=== PATIENT | female | born 1955 | race Caucasian/White ===

== ENCOUNTER 2018-03-17 14:46 | Inpatient (IN) | payer BC ==
[2018-03-17] MEDS ORDERED: Sodium Chloride 0.9% 1,000 ML IV STA (15:19)
--- NOTE | 2018-03-17 15:49 | ED PDOC ---
Arrival/HPI - General Chief Complaint: GI Problem Time Seen by Provider: 03/17/18 15:19 Historian: Patient - History of Present Illness Narrative History of Present Illness (Text): 03/17/18 15:44 62yr old female presents today sent in by PMD for upper and lower gi bleeding. pt states yesterday she vomited twice and the second time she vomited a large amount of blood. pt states that shortly after that she had 6 episodes of bright red blood per rectum. pt states she also noted dark stools today. pt denies cp or sob. pt denies nausea today. pt denies any fever/chills. pt denies any abdominal pain at present time. no dizziness. c/o slight generalized weakness but attributes it to not eating today. Past Medical History - Provider Review Nursing Documentation Reviewed: Yes - Travel History Have you recently traveled outside [place] w/in the past 3 mons?: No - Tetanus Immunization Tetanus Immunization: Unknown - Cardiac Hx Cardiac Disorders: Yes Hx Hypertension: Yes - Pulmonary Hx Respiratory Disorders: No - Neurological Hx Neurological Disorder: No - HEENT Hx HEENT Disorder: No - Renal Hx Renal Disorder: No - Endocrine/Metabolic Hx Endocrine Disorders: Yes Hx Diabetes Mellitus Type 2: Yes - Hematological/Oncological Hx Blood Disorders: No - Integumentary Hx Dermatological Disorder: No - Musculoskeletal/Rheumatological Hx Musculoskeletal Disorders: Yes Hx Fractures: Yes - Gastrointestinal Hx Gastrointestinal Disorders: Yes Other/Comment: GI BLEEDING - Genitourinary/Gynecological Hx Genitourinary Disorders: No - Psychiatric Hx Psychophysiologic Disorder: No Hx Substance Use: No - Surgical History Hx Orthopedic Surgery: Yes Family/Social History - Physician Review Nursing Documentation Reviewed: Yes Family/Social History: Unknown Family HX Smoking Status: Never Smoked Hx Alcohol Use: No Hx Substance Use: No Allergies/Home Meds Allergies/Adverse Reactions: Allergies No Known Allergies Allergy (Verified 03/17/18 15:05) Home Medications: Home Meds Medication Instructions Recorded Confirmed Aspirin [Aspirin Chewable] 81 mg PO DAILY 03/17/18 03/17/18 Lisinopril [Zestril] 40 mg PO DAILY 03/17/18 03/17/18 Metoprolol Succinate XL [Toprol XL] 100 mg PO DAILY 03/17/18 03/17/18 SITagliptin [Januvia] 100 mg PO DAILY 03/17/18 03/17/18 Review of Systems - Review of Systems Constitutional: Fatigue. absent: Fevers Respiratory: absent: SOB, Cough Cardiovascular: absent: Chest Pain Gastrointestinal: Vomiting. absent: Abdominal Pain, Constipation, Diarrhea, Nausea Genitourinary Female: absent: Dysuria, Frequency, Hematuria Musculoskeletal: absent: Arthralgias, Back Pain, Neck Pain Skin: absent: Rash, Pruritis Neurological: absent: Headache, Dizziness Psychiatric: absent: Anxiety, Depression, Suicidal Ideation Physical Exam Vital Signs Reviewed: Yes Vital Signs Temp Pulse Resp BP Pulse Ox 03/17/18 18:09 82 18 120/61 100 03/17/18 17:40 83 18 116/55 L 100 03/17/18 17:20 79 18 116/51 L 100 03/17/18 17:19 80 18 116/51 L 100 03/17/18 15:39 82 18 144/64 100 03/17/18 15:06 98.1 F 79 16 122/59 L 99 Temperature: Afebrile Blood Pressure: Normal Pulse: Regular Respiratory Rate: Normal Appearance: Positive for: Well-Appearing, Non-Toxic, Comfortable Pain Distress: None Mental Status: Positive for: Alert and Oriented X 3 - Systems Exam Head: Present: Atraumatic Mouth: Present: Moist Mucous Membranes Neck: Present: Normal Range of Motion Respiratory/Chest: Present: Clear to Auscultation, Good Air Exchange. No: Respiratory Distress, Accessory Muscle Use Cardiovascular: Present: Regular Rate and Rhythm, Normal S1, S2. No: Murmurs Abdomen: No: Tenderness, Distention, Peritoneal Signs, Rebound, Guarding Rectal: Present: Gross Blood, Melena, Normal Rectal Tone. No: Rectal Tenderness Back: Present: Normal Inspection. No: CVA Tenderness, Midline Tenderness, Paraspinal Tenderness Upper Extremity: Present: Normal ROM Lower Extremity: Present: Normal ROM Neurological: Present: GCS=15, Speech Normal Skin: Present: Warm, Dry, Normal Color. No: Rashes Psychiatric: Present: Alert, Oriented x 3 Medical Decision Making ED Course and Treatment: 03/17/18 15:55 62yr old female with liver cirrhosis with active GI bleeding. case discussed with dr. Lboo immediately in depth; advised protonix bolus and drip and oxtreotide bolus and drip. cbc: hcg; 10.8 Platelets; 118 CMP; Glucose; 223 BUN; 37 pt: 14 INR: 1.22 cxr: wnl ekg; normal sinus rhythm at 76 bpm normal axis no ST elevations QTC 492 03/17/18 17:[address] Fields 03/17/18 17:[address] Ridley; accepts admission. dr. ridley is requesting to type and cross for 4 units to hold. consent for blood transfusion obtained. all aspects of this case were discussed the attending of record. impression; active GI bleed admit ICU - Lab Interpretations Lab Results: 03/17/18 15:45 03/17/18 15:45 Lab Results 03/17/18 17:08: Blood Type Confirm AB POSITIVE 03/17/18 15:45: Lactate Dehydrogenase 551, Total Creatine Kinase 112, Troponin I < 0.01 03/17/18 15:45: PT 14.0 H, INR 1.22, APTT 35.1 03/17/18 15:45: WBC 10.3, RBC 3.20 L, Hgb 10.8 L, Hct 30.5 L, MCV 95.3, MCH 33.8 , MCHC 35.4, RDW 13.9, Plt Count 118 L, MPV 10.5, Gran % 64.3, Lymph % (Auto) 28.1, [place] % (Auto) 6.2 H, Eos % (Auto) 1.2 L, Baso % (Auto) 0.2, Gran # 6.60 H , Lymph # (Auto) 2.9, [place] # (Auto) 0.6, Eos # (Auto) 0.1, Baso # (Auto) 0.02 03/17/18 15:45: Blood Type AB POSITIVE, Antibody Screen Negative, BBK History Checked No verified bt 03/17/18 15:45: Sodium 144, Potassium 4.2, Chloride 109 H, Carbon Dioxide 23, Anion Gap 17, BUN 37 H, Creatinine 0.6 L, Est GFR ( Amer) > 60, Est GFR ( Non-Af Amer) > 60, Random Glucose 223 H, Calcium 9.5, Total Bilirubin 2.4 H, AST 65 H, ALT 43, Alkaline Phosphatase 96, Total Protein 7.4, Albumin 3.7, Globulin 3.7, Albumin/Globulin Ratio 1.0 L - RAD Interpretation Radiology Orders: 03/17/18 15:35 CHEST PORTABLE [RAD] Stat - Medication Orders Current Medication Orders: Pantoprazole Sodium (Protonix 40mg Ivpb) 40 mg in 100 mls @ 20 mls/hr IVPB .Q5H NEIL Last Admin: 03/17/18 16:31 Dose: 20 mls/hr eMAR Start Stop Document 03/17/18 16:31 HI (Rec: 03/17/18 16:32 [email or web address] Intravenous Solution Start Date 03/17/18 Start Time 16:32 Octreotide Acetate 1,250 mcg/ (Sodium Chloride) 252.5 mls @ 5.05 mls/hr IV .Q24H NEIL; 25 MCG/HR PRN Reason: Protocol Last Admin: 03/17/18 17:51 Dose: 25 mcg/hr, 5.05 mls/hr eMAR Start Stop Document 03/17/18 17:51 HI (Rec: 03/17/18 17:52 [facility] Intravenous Solution Start Date 03/17/18 Start Time 17:51 Titration Intervention Document 03/17/18 17:51 HI (Rec: 03/17/18 17:52 [email or web address] Titration Intake Waste Amount 0 Container Volume 252.5 Titration Dosing Titration Dose 25 IV Rate 5.05 Intake/Decrease Started Discontinued Medications Sodium Chloride (Sodium Chloride 0.9%) 1,000 mls @ 999 mls/hr IV .Q1H1M STA Stop: 03/17/18 16:19 Last Admin: 03/17/18 15:45 Dose: 999 mls/hr eMAR Start Stop Document 03/17/18 15:45 HI (Rec: 03/17/18 15:57 [email or web address]) Intravenous Solution Start Date 03/17/18 Start Time 15:52 Octreotide Acetate (Sandostatin) 50 mcg IVP STAT STA Stop: 03/17/18 15:57 Last Admin: 03/17/18 16:31 Dose: 50 mcg IVP Administration Document 03/17/18 16:31 HI (Rec: 03/17/18 16:31 [email or web address] Charges for Administration # of IVP Administrations 1 Pantoprazole Sodium (Protonix Inj) 40 mg IVP STAT STA Stop: 03/17/18 15:35 Last Admin: 03/17/18 15:57 Dose: 40 mg IVP Administration Document 03/17/18 15:57 HI (Rec: 03/17/18 15:57 [email or web address] Charges for Administration # of IVP Administrations 1 Disposition/Present on Arrival - Present on Arrival Any Indicators Present on Arrival: Yes History of DVT/PE: No History of Uncontrolled Diabetes: Yes Urinary Catheter: No History of Decub. Ulcer: No History Surgical Site Infection Following: None - Disposition Have Diagnosis and Disposition been Completed?: Yes Diagnosis: Acute GI bleeding Disposition: HOSPITALIZED Disposition Time: 17:34 Patient Plan: Admission, ICU Patient Problems: Current Active Problems Problem Status Onset Acute GI bleeding Acute Condition: CRITICAL
--- NOTE | 2018-03-17 16:01 | RAD ---
Date of service: 03/17/2018 HISTORY: rectal bleeding/vomiting blood COMPARISON: No prior. FINDINGS: LUNGS: The lungs are well inflated and clear. PLEURA: No significant pleural effusion identified, no pneumothorax apparent. CARDIOVASCULAR: Normal. OSSEOUS STRUCTURES: No significant abnormalities. VISUALIZED UPPER ABDOMEN: Normal. OTHER FINDINGS: None. IMPRESSION: No active pulmonary disease.
[2018-03-17 16:08] LABS: BASO # 0.02 K/mm3 (0.0-2.0); BASO % 0.2 % (0.0-3.0); EOS # 0.1 (0.0-0.7); EOS % 1.2 % (1.5-5.0); GRAN # 6.6 (1.4-6.5); GRAN % 64.3 % (50.0-68.0); HEMOGLOBIN 10.8 g/dL (12.0-16.0); LYMPH # 2.9 (1.2-3.4); LYMPH % 28.1 % (22.0-35.0); MEAN CELL VOLUME 95.3 fl (80.0-105.0); MEAN CORPUSCULAR HEMOGLOBIN 33.8 pg (25.0-35.0); MEAN CORPUSCULAR HGB CONC 35.4 g/dl (31.0-37.0); MEAN PLATELET VOLUME 10.5 fl (7.0-11.0); MONO # 0.6 (0.1-0.6); MONO % 6.2 % (1.0-6.0); RBC 3.2 10^6/uL (3.5-6.1); RED CELL DISTRIBUTION WIDTH 13.9 % (11.5-14.5); WHITE BLOOD COUNT 10.3 10^3/ul (4.5-11.0)
[2018-03-17 16:21] LABS: ALBUMIN 3.7 g/dL (3.0-4.8); ALT/SGPT 43 U/L (7-56); AST/SGOT 65 U/L (14-36); BLOOD UREA NITROGEN 37 mg/dL (7-21); CALCIUM 9.5 mg/dL (8.4-10.5); GFR NON-AFRICAN AMERICAN > 60; INR 1.22; PARTIAL THROMBOPLASTIN TIME 35.1 Seconds (25.1-36.5)
[2018-03-17] MEDS: Pantoprazole 40mg/100mL NS 40 MG/100 ML BAG IVPB SCH ×2 (16:31→21:40)
[2018-03-17 17:03] LABS: TROPONIN I < 0.01 ng/mL
--- NOTE | 2018-03-17 17:48 | CP.PCM.CON ---
<Carolina Pereira - Last Filed: 03/17/18 18:37> History of Present Illness - History of Present Illness History of Present Illness: Carolina Pereira, PGY-1 ICU Consult Note This is a 62 year old female with PMH of DM, HT, cirrhosis and fatty liver disease presenting to the ER for bloody stools and bloody vomit. She was sent to the ER by her PMD Dr. Mayi Cortez. Patient admits to 6 bloody stools that are described as black solid stools with toilet full of bright red blood and 4-5 episodes of bloody vomiting yesterday. Last bowel movement was approximately 16 hours ago. She denies any history of similar symptoms. She denies any recent change in lifestyle including medication, food, travel and drugs. Patient denies any history of hepatitis. She states she has never had colonoscopy or endoscopy in the past. She currently admits to nausea. She denies chest pain, SOB, abdominal pain, fevers, chills, headaches, urinary symptoms, back pain, numbness, tingling and swelling. 12 point ROS noted here, otherwise unremarkable. PMH: PMH of DM, HT, cirrhosis and fatty liver SH: denies drinking and smoking FH: non contributory PMD: Dr. Cortez Home Meds: Januvia, lisinopril, metoprolol and aspirin Past Patient History - Tetanus Immunizations Tetanus Immunization: Unknown - Past Social History Smoking Status: Never Smoked - CARDIAC Hx Cardiac Disorders: Yes Hx Hypertension: Yes - PULMONARY Hx Respiratory Disorders: No - NEUROLOGICAL Hx Neurological Disorder: No - HEENT Hx HEENT Problems: No - RENAL Hx Chronic Kidney Disease: No - ENDOCRINE/METABOLIC Hx Endocrine Disorders: Yes Hx Diabetes Mellitus Type 2: Yes - HEMATOLOGICAL/ONCOLOGICAL Hx Blood Disorders: No - INTEGUMENTARY Hx Dermatological Problems: No - MUSCULOSKELETAL/RHEUMATOLOGICAL Hx Musculoskeletal Disorders: Yes Hx Fractures: Yes - GASTROINTESTINAL Hx Gastrointestinal Disorders: Yes Other/Comment: GI BLEEDING - GENITOURINARY/GYNECOLOGICAL Hx Genitourinary Disorders: No - PSYCHIATRIC Hx Psychophysiologic Disorder: No Hx Substance Use: No - SURGICAL HISTORY Hx Orthopedic Surgery: Yes Meds Allergies/Adverse Reactions: Allergies Allergy/AdvReac Type Severity Reaction Status Date / Time No Known Allergies Allergy Verified 03/17/18 15:05 - Medications Medications: Current Medications Pantoprazole Sodium (Protonix 40mg Ivpb) 40 mg in 100 mls @ 20 mls/hr IVPB .Q5H NEIL Last Admin: 03/17/18 16:31 Dose: 20 mls/hr Octreotide Acetate 1,250 mcg/ (Sodium Chloride) 252.5 mls @ 5.05 mls/hr IV .Q24H NEIL; 25 MCG/HR PRN Reason: Protocol Physical Exam - Head Exam Head Exam: ATRAUMATIC, NORMAL INSPECTION - Eye Exam Eye Exam: EOMI, PERRL - ENT Exam ENT Exam: Normal Exam - Neck Exam Neck exam: Positive for: Normal Inspection - Respiratory Exam Respiratory Exam: Clear to Auscultation Bilateral, NORMAL BREATHING PATTERN. absent: Wheezes, Respiratory Distress - Cardiovascular Exam Cardiovascular Exam: REGULAR RHYTHM, RRR, +S1, +S2. absent: Tachycardia - GI/Abdominal Exam GI & Abdominal Exam: Normal Bowel Sounds, Soft. absent: Distended, Firm, Guarding, Rebound, Rigid, Tenderness - Back Exam Back exam: NORMAL INSPECTION. absent: CVA tenderness (L), CVA tenderness (R) - Neurological Exam Neurological exam: Alert, CN II-XII Intact, Oriented x3 - Psychiatric Exam Psychiatric exam: Normal Affect - Skin Skin Exam: Normal Color Results - Vital Signs Recent Vital Signs: Last Vital Signs Temp 98.1 F 03/17/18 15:06 Pulse 79 03/17/18 17:20 Resp 18 03/17/18 17:20 BP 116/51 L 03/17/18 17:20 Pulse Ox 100 03/17/18 17:20 - Labs Result Diagrams: 03/17/18 15:45 03/17/18 15:45 Labs: Laboratory Results - last 24 hr 03/17/18 03/17/18 03/17/18 15:45 15:45 15:45 WBC 10.3 RBC 3.20 L Hgb 10.8 L Hct 30.5 L MCV 95.3 MCH 33.8 MCHC 35.4 RDW 13.9 Plt Count 118 L MPV 10.5 Gran % 64.3 Lymph % (Auto) 28.1 [place] % (Auto) 6.2 H Eos % (Auto) 1.2 L Baso % (Auto) 0.2 Gran # 6.60 H Lymph # (Auto) 2.9 [place] # (Auto) 0.6 Eos # (Auto) 0.1 Baso # (Auto) 0.02 PT INR APTT Sodium 144 Potassium 4.2 Chloride 109 H Carbon Dioxide 23 Anion Gap 17 BUN 37 H Creatinine 0.6 L Est GFR ( Amer) > 60 Est GFR (Non-Af Amer) > 60 Random Glucose 223 H Calcium 9.5 Total Bilirubin 2.4 H AST 65 H ALT 43 Alkaline Phosphatase 96 Lactate Dehydrogenase Total Creatine Kinase Troponin I Total Protein 7.4 Albumin 3.7 Globulin 3.7 Albumin/Globulin Ratio 1.0 L Blood Type AB POSITIVE Antibody Screen Negative BBK History Checked No verified bt 03/17/18 03/17/18 15:45 15:45 WBC RBC Hgb Hct MCV MCH MCHC RDW Plt Count MPV Gran % Lymph % (Auto) [place] % (Auto) Eos % (Auto) Baso % (Auto) Gran # Lymph # (Auto) [place] # (Auto) Eos # (Auto) Baso # (Auto) PT 14.0 H INR 1.22 APTT 35.1 Sodium Potassium Chloride Carbon Dioxide Anion Gap BUN Creatinine Est GFR ( Amer) Est GFR (Non-Af Amer) Random Glucose Calcium Total Bilirubin AST ALT Alkaline Phosphatase Lactate Dehydrogenase 551 Total Creatine Kinase 112 Troponin I < 0.01 Total Protein Albumin Globulin Albumin/Globulin Ratio Blood Type Antibody Screen BBK History Checked Assessment & Plan - Assessment and Plan (Free Text) Assessment: This is a 62 year old female with PMH of DM, HT, cirrhosis and fatty liver presenting to the ICU for management of bloody vomiting and bloody stools secondary to possible variceal bleed due to known history of cirrhosis. Will need GI workup to rule out diverticulosis, colon cancer, angiodysplasia, PUD and gastritis. Plan: Neuro: -maintain normothermia -AAO x3, moving extremities spontaneously past midline Cardio: -maintain MAP>65 -will monitor vitals including HR and BP -Troponin is <0.01 signifying unlikely cardiac ischemic etiology -Will hold BP medications at this time Lungs: -SaO2 >90% -supplementary O2 PRN -CXR showed no active disease GI: -NPO diet -octreotide drip -protonix drip -CT abd/pelvis pending -GI consult, Dr Lobo Renal: -maintain euvolemia -avoid nephrotoxic agents, hypochloremia -replace electrolytes as needed -BUN/Cr 37/0.6, will monitor. No concern for RADHA at this time Heme: -Hg today is 10.8, will monitor in light of bleeding history. CBC Q6 -PT/INR is 14/1.22 signifying unlikely coagulopathy -hold anticoagulants Endo: -maintain euglycemia ID: -WBC is 10.3 today, afebrile. No concern for infectious etiology at this time -blood culture, urine culture pending <Fidencio Fields - Last Filed: 03/17/18 18:41> Meds - Medications Medications: Current Medications Pantoprazole Sodium (Protonix 40mg Ivpb) 40 mg in 100 mls @ 20 mls/hr IVPB .Q5H NEIL Last Admin: 03/17/18 16:31 Dose: 20 mls/hr Octreotide Acetate 1,250 mcg/ (Sodium Chloride) 252.5 mls @ 5.05 mls/hr IV .Q24H NEIL; 25 MCG/HR PRN Reason: Protocol Last Admin: 03/17/18 17:51 Dose: 25 mcg/hr, 5.05 mls/hr Results - Vital Signs Recent Vital Signs: Last Vital Signs Temp 98.1 F 03/17/18 15:06 Pulse 82 03/17/18 18:09 Resp 18 03/17/18 18:09 BP 120/61 03/17/18 18:09 Pulse Ox 100 03/17/18 18:09 - Labs Result Diagrams: 03/17/18 15:45 03/17/18 15:45 Assessment & Plan - Assessment and Plan (Free Text) Assessment: Patient seen and examined on rounds with resident, agree with note with following additions/exceptions: Patient is 62yo female with PMhx HTN, DM, fatty liver cirrhosis, presented with 2 episodes of hematemesis, and 6 episodes of bloody BMs at home, last BM at midnight last night. Pt reports she has never had colonoscopy or EGD, refusing it in the past. Pt denies dizziness, abd pain, cp, sob. Labs, imaging, chart reviewed. GIB Cirrhosis DM HTN Recommend: - supp o2 as needed - NO ID issues - Hold BP meds - NPO - IVF - Ocreotide drip - PPI drip - CBC q6hr - GI eval - CT A/P - maintain 2 large bore PIVs - DVT ppx, SCDs - Admit to MICU
--- NOTE | 2018-03-17 19:52 | CARD ---
APPROVED REPORT Date of service: 03/17/2018 EKG Measurement Heart [id number] <Conclusion> Normal sinus rhythm Minimal voltage criteria for LVH, may be normal variant ST abnormality, possible digitalis effect Prolonged QT Abnormal ECG
[2018-03-17 23:03] VITALS: BMI 28.3
[2018-03-17] MEDS ORDERED: Phytonadione 10 MG in Sodium Chloride 0.9% 50 ML IV ONE (23:31)
[2018-03-17] MEDS: Lactated Ringer's 1,000 ML IV SCH (23:40)
[2018-03-17] MEDS: Insulin Lispro (humaLOG) LOW Coverage SC SCH (23:40)
[2018-03-18 00:48] LABS: BASO # 0.01 K/mm3 (0.0-2.0); BASO % 0.2 % (0.0-3.0); EOS # 0.1 (0.0-0.7); EOS % 2.4 % (1.5-5.0); GRAN # 3.62 (1.4-6.5); GRAN % 61.1 % (50.0-68.0); HEMOGLOBIN 8.7 g/dL (12.0-16.0); LYMPH # 1.8 (1.2-3.4); LYMPH % 30.6 % (22.0-35.0); MEAN CELL VOLUME 96.9 fl (80.0-105.0); MEAN CORPUSCULAR HEMOGLOBIN 34.1 pg (25.0-35.0); MEAN CORPUSCULAR HGB CONC 35.2 g/dl (31.0-37.0); MEAN PLATELET VOLUME 10.3 fl (7.0-11.0); MONO # 0.3 (0.1-0.6); MONO % 5.7 % (1.0-6.0); RBC 2.55 10^6/uL (3.5-6.1); RED CELL DISTRIBUTION WIDTH 14.1 % (11.5-14.5); WHITE BLOOD COUNT 5.9 10^3/ul (4.5-11.0)
--- NOTE | 2018-03-18 01:07 | HP ---
Copied To: Benny George MD Attending MD: Benny George MD HISTORY OF PRESENT ILLNESS: The patient is a 62-year-old [place] female, came to the emergency room as a walk-in. The patient came to the emergency room reporting vomiting blood and passing blood in the bowel movement. Upon detailed review of the patient's history with the patient's family, the patient was seen today by her primary care physician and healthcare provider in [facility] where the patient was reported to have a notes of the physician and the healthcare provided that the patient had multiple episodes of hematemesis and hematochezia. The patient was referred to the emergency room by the patient's physician in the [facility]. According to the notes which are made available by the patient's family, the patient was diagnosed with cirrhosis and possible hepatitis in 01/2018 and the patient was advised endoscopy and GI workup, which the patient refused. Today, the patient came to the emergency room with hematemesis and hematochezia and bright red blood per rectum and also vomiting blood. REVIEW OF SYSTEMS: Thirteen-system review was dictated above. CODE STATUS: Full code. LIVING WILL ADVANCE DIRECTIVE: None. ALLERGIES: NONE. HEIGHT: 5 feet. WEIGHT: 145. BMI: 28.3. HOME MEDICATIONS: Januvia 100 mg daily, Zestril 40 mg daily, aspirin 81 mg daily, Toprol-XL 100 mg daily. SOCIAL HISTORY: The patient's social history is negative for substance abuse. Negative for alcohol. Negative for smoking. Negative for communicable transmissible diseases. MENSTRUAL HISTORY: Postmenopausal. OCCUPATIONAL HISTORY: Not available. FAMILY HISTORY: Positive for diabetes and hypertension. PAST MEDICAL AND SURGICAL HISTORY: History of diagnosis of cirrhosis since 01/2018 in [facility]. The patient was advised GI workup including endoscopy, etc., which the patient declined. History of type 2 diabetes mellitus, history of hypertension, history of hypertension. The patient's past medical history according to the patient and the [facility] is history of hypertension, history of diabetes. The patient denies any history of blood transfusion. PHYSICAL EXAMINATION: GENERAL: The patient was seen initially in the emergency room. The patient is seen in the ICU. VITAL SIGNS: T-max is 98; pulse 83, sinus rhythm; blood pressure 122/59, 144/64, 116/61, 120/61, 151/67; respirations 18-20; O2 sat 100%. HEENT: The patient's head examination normocephalic, atraumatic. HEENT examination shows pinkish pale conjunctivae, slightly icteric sclerae. No oropharyngeal lesion. No neck rigidity. CHEST: Kyphosis. LUNGS: Shows no rales, crackles or wheezing. CARDIOVASCULAR: S1, S2. Regular rhythm. ABDOMEN: Soft, slightly protuberant. Positive epigastric periumbilical deep tenderness. No guarding. No rigidity. No rebound tenderness. No hepatosplenomegaly palpable. GENITALIA: Female. RECTAL: Questionable guaiac-positive in the ER, emergent. EXTREMITY: Shows no pitting edema, no calf tenderness, no Homans' sign. NEUROLOGICAL: The patient is alert, awake, oriented x3, is able to move upper and lower extremity without assistance. Gait examination is not tested. VASCULAR: Palpable pulses. Cranial nerves II through XII intact. DIAGNOSTICS: WBC 10.3, hemoglobin and hematocrit 10.8 and 30.5, platelet 118. PT/PTT 14 and 35.1. Sodium 144, potassium 4.2, chloride 109, CO2 of 23, anion gap 17, BUN 37, creatinine 0.6, GFR greater than 60, glucose 223, calcium 9.5, total bili 2.4, AST 65. Troponin is negative. Chest x-ray was done in the emergency room, which was negative. EKG shows sinus rhythm, hypertensive cardiovascular disease. The patient was seen in the emergency room by the physician assistant finance director, Heena Palacios. The patient was evaluated in the emergency room by the marble polisher. IMPRESSION AND PLAN: 1. A 62-year-old [place] female, recently diagnosed with cirrhosis in [facility] by a physician in [facility], was advised again diagnostic workup, which the patient refused. Comes in with hematochezia and hematemesis. 2. Upper gastrointestinal bleeding with hematemesis. 3. Lower gastrointestinal with hematochezia. 4. History of cirrhosis. 5. History of hypertension. 6. Anemia. 7. Thrombocytopenia. 8. Mild coagulopathy. 9. Prerenal kidney injury. 10. Diabetes mellitus. 11. Hyperbilirubinemia. 12. Transaminitis. 13. AB+ blood type. 14. Hypertensive cardiovascular disease. 15. Hepatic cirrhosis with hepato-parenchymal disease. 16. Questionable noncompliance versus poor compliance. 17. Type 2 diabetes mellitus. 18. History of hypertension. 19. History of cirrhosis. 20. Bright red blood per rectum and upper gastrointestinal bleeding. Plan at this time, the patient will be admitted to [facility]. The patient will be ordered serial labs. The patient has already been started on Sandostatin or Octreotide drip, which is at present to be continued at 25 mcg per hour. The patient is on Protonix drip. The patient will be started on IV fluid. The patient will be ordered repeat labs. Gastroenterology consultation has been ordered. The patient has been typed and screened. The patient will be kept n.p.o. The patient will be put on sliding scale coverage. The patient will be ordered hepatitis A, B, C serologies. The patient's further management will be dependent upon the patient's clinical condition, hemodynamic status and as per the patient response to therapeutic intervention. The patient will require further GI investigation. The patient and the patient's family were explained about the details of her medical condition, need for further diagnostic therapeutic intervention, need for continued hospitalization and testing and further diagnostic therapeutic intervention was explained to the patient and the patient's family at length and all questions concerned answered. Time spent in the entire management is more than 1 hour 50 minutes. Dictated and electronically signed, not read. Benny George MD
[2018-03-18] MEDS: Pantoprazole 40mg/100mL NS 40 MG/100 ML BAG IVPB SCH ×5 (01:50→22:57)
[2018-03-18] MEDS: Insulin Lispro (humaLOG) LOW Coverage SC SCH ×4 (06:38→22:30)
[2018-03-18 07:13] LABS: BASO # 0.01 K/mm3 (0.0-2.0); BASO % 0.2 % (0.0-3.0); EOS # 0.1 (0.0-0.7); EOS % 2.1 % (1.5-5.0); GRAN # 3.29 (1.4-6.5); GRAN % 67.7 % (50.0-68.0); HEMOGLOBIN 8.1 g/dL (12.0-16.0); LYMPH # 1.3 (1.2-3.4); LYMPH % 26.1 % (22.0-35.0); MEAN CELL VOLUME 96.6 fl (80.0-105.0); MEAN CORPUSCULAR HEMOGLOBIN 34.2 pg (25.0-35.0); MEAN CORPUSCULAR HGB CONC 35.4 g/dl (31.0-37.0); MEAN PLATELET VOLUME 10.5 fl (7.0-11.0); MONO # 0.2 (0.1-0.6); MONO % 3.9 % (1.0-6.0); RBC 2.37 10^6/uL (3.5-6.1); RED CELL DISTRIBUTION WIDTH 14.2 % (11.5-14.5); WHITE BLOOD COUNT 4.9 10^3/ul (4.5-11.0)
[2018-03-18 07:22] LABS: INR 1.3; PARTIAL THROMBOPLASTIN TIME 33.5 Seconds (25.1-36.5)
[2018-03-18 07:36] LABS: LDL CHOLESTEROL 68 mg/dL (0-129)
[2018-03-18 07:40] LABS: FREE T4 1.46 ng/dL (0.78-2.19); T4 8.8 ug/dL (5.5-11.0)
[2018-03-18 07:50] LABS: ALB/GLOB RATIO 0.8 (1.1-1.8); ALBUMIN 2.7 g/dL (3.0-4.8); ALT/SGPT 58 U/L (7-56); AST/SGOT 88 U/L (14-36); BILIRUBIN,DIRECT 0.4 mg/dL (0.0-0.4); BLOOD UREA NITROGEN 38 mg/dL (7-21); GFR NON-AFRICAN AMERICAN > 60; HDL CHOLESTEROL 31 mg/dL (29-60)
[2018-03-18 08:05] LABS: BASO # 0.01 K/mm3 (0.0-2.0); BASO % 0.2 % (0.0-3.0); EOS # 0.1 (0.0-0.7); EOS % 2.8 % (1.5-5.0); GRAN # 3.32 (1.4-6.5); GRAN % 67.4 % (50.0-68.0); HEMOGLOBIN 8.3 g/dL (12.0-16.0); LYMPH # 1.2 (1.2-3.4); LYMPH % 24.7 % (22.0-35.0); MEAN CELL VOLUME 96.4 fl (80.0-105.0); MEAN CORPUSCULAR HEMOGLOBIN 33.6 pg (25.0-35.0); MEAN CORPUSCULAR HGB CONC 34.9 g/dl (31.0-37.0); MEAN PLATELET VOLUME 10.9 fl (7.0-11.0); MONO # 0.2 (0.1-0.6); MONO % 4.9 % (1.0-6.0); RBC 2.47 10^6/uL (3.5-6.1); RED CELL DISTRIBUTION WIDTH 14.2 % (11.5-14.5); WHITE BLOOD COUNT 4.9 10^3/ul (4.5-11.0)
--- NOTE | 2018-03-18 08:36 | CP.PCM.PN ---
Subjective - Date & Time of Evaluation Date of Evaluation: 03/18/18 Time of Evaluation: 08:00 - Subjective Subjective: (covering for Dr. George) Patient is seen this morning in the intensive care unit bed 2. She says that she feels better and denies any abdominal pain or bleeding. Objective - Vital Signs/Intake and Output Vital Signs (last 24 hours): Temp Pulse Resp BP Pulse Ox 98.3 F 77 15 104/50 L 100 03/18/18 04:00 03/18/18 05:40 03/18/18 05:40 03/18/18 05:00 03/18/18 05:40 Intake and Output: 03/18/18 03/18/18 06:59 18:59 Intake Total 1001 Output Total 300 Balance 701 - Medications Medications: Current Medications Acetaminophen (Tylenol 650 Mg Supp) 650 mg RC Q6H PRN PRN Reason: TEMP>=99.5F Pantoprazole Sodium (Protonix 40mg Ivpb) 40 mg in 100 mls @ 20 mls/hr IVPB .Q5H NEIL Last Admin: 03/18/18 06:40 Dose: 20 mls/hr Octreotide Acetate 1,250 mcg/ (Sodium Chloride) 252.5 mls @ 5.05 mls/hr IV .Q24H NEIL; 25 MCG/HR PRN Reason: Protocol Last Admin: 03/17/18 17:51 Dose: 25 mcg/hr, 5.05 mls/hr Lactated Ringer's (Lactated Ringer's) 1,000 mls @ 100 mls/hr IV .Q10H NEIL Last Admin: 03/17/18 23:40 Dose: 100 mls/hr Insulin Human Lispro (Humalog Low) 0 units SC Q6H NEIL PRN Reason: Protocol Last Admin: 03/18/18 06:38 Dose: 2 units Ondansetron HCl (Zofran Inj) 4 mg IVP Q4H PRN PRN Reason: Nausea/Vomiting - Labs Labs: 03/18/18 06:50 03/18/18 06:50 PT 15.0 SECONDS (9.4-12.5) H 03/18/18 06:50 INR 1.30 03/18/18 06:50 APTT 33.5 Seconds (25.1-36.5) 03/18/18 06:50 - Constitutional Appears: No Acute Distress - Head Exam Head Exam: ATRAUMATIC, NORMOCEPHALIC - Respiratory Exam Respiratory Exam: Clear to Ausculation Bilateral, NORMAL BREATHING PATTERN - Cardiovascular Exam Cardiovascular Exam: REGULAR RHYTHM, +S1, +S2 - GI/Abdominal Exam GI & Abdominal Exam: Soft, Normal Bowel Sounds. absent: Tenderness - Neurological Exam Neurological Exam: Alert, Awake, Oriented x3 Assessment and Plan - Assessment and Plan (Free Text) Assessment: GI Bleed HTN Diabetes Plan: Patient says she feels better. Denies any bleeding or abdominal pain this morning. She is to have endoscopy today. Hemoglobin steadily decreasing. continue IV Protonix. continue accuchecks with sliding scale coverage. continue to monitor hemoglobin.
--- NOTE | 2018-03-18 10:02 | CT ---
Date of service: 03/17/2018 PROCEDURE: CT Abdomen and Pelvis without intravenous contrast HISTORY: hematemesis and hematochezia COMPARISON: None. TECHNIQUE: Without contrast. Contrast dose: Radiation dose: Total exam DLP = 424 mGy-cm. This CT exam was performed using one or more of the following dose reduction techniques: Automated exposure control, adjustment of the mA and/or kV according to patient size, and/or use of iterative reconstruction technique. FINDINGS: LOWER THORAX: Unremarkable. LIVER: The liver has an irregular contour suggestive of cirrhosis. The left lobe of the liver extends lateral to the spleen. This is a normal variation. There are no varices visualized GALLBLADDER AND BILE DUCTS: Unremarkable. PANCREAS: Unremarkable. No gross lesion or ductal dilatation. SPLEEN: Unremarkable. ADRENALS: Unremarkable. No mass. KIDNEYS AND URETERS: Unremarkable. No hydronephrosis. No solid mass. VASCULATURE: Unremarkable. No aortic aneurysm. BOWEL: Unremarkable. No obstruction. No gross mural thickening. APPENDIX: Unremarkable. Normal appendix. PERITONEUM: Unremarkable. No free fluid. No free air. LYMPH NODES: Unremarkable. No enlarged lymph nodes. BLADDER: Unremarkable. REPRODUCTIVE: Unremarkable. BONES: No acute fracture. OTHER FINDINGS: The report concurs with the preliminary [facility] report IMPRESSION: Irregular contour of the liver suspicious for cirrhosis
--- NOTE | 2018-03-18 10:03 | CP.CCUPN ---
<RaeCarolina gusman - Last Filed: 03/18/18 10:20> CCU Subjective - Physician Review Events Since Last Encounter (Free Text): Carolina Pereira, PGY-1 ICU Progress Note Patient seen and examined this morning. No acute events overnight. Plan for endoscopy today. Denies CP, SOB, nausea, vomiting, abdominal pain, urinary complaints, headaches and back pain. ROS noted here, otherwise unremarkable. CCU Objective - Vital Signs / Intake & Output Intake and Output (Last 8hrs): Intake & Output 03/17/18 03/18/18 03/18/18 22:59 06:59 14:59 Intake Total 1001 Output Total 300 Balance 701 Weight 145 lb Intake: IV 1001 Left Antecubital 700 Right Antecubital 301 Output: Urine 300 Urethral (Cadet) 150 Urine, Voided 150 Other: Voiding Method Bedpan # Bowel Movements 0 - Physical Exam Head: Positive for: Atraumatic, Normocephalic Mouth: Positive for: Moist Mucous Membranes Neck: Positive for: Normal Range of Motion Respiratory/Chest: Positive for: Clear to Auscultation, Good Air Exchange. Negative for: Respiratory Distress, Accessory Muscle Use Cardiovascular: Positive for: Regular Rate and Rhythm, Normal S1, S2. Negative for: Murmurs Abdomen: Negative for: Tenderness, Distention, Peritoneal Signs, Rebound, Guarding Back: Positive for: Normal Inspection. Negative for: CVA Tenderness, Midline Tenderness, Paraspinal Tenderness Upper Extremity: Positive for: Normal ROM Lower Extremity: Positive for: Normal ROM Neurological: Positive for: GCS=15, CN II-XII Intact, Speech Normal Skin: Positive for: Warm, Dry, Normal Color. Negative for: Rashes Psychiatric: Positive for: Alert, Oriented x 3 - Medications Active Medications: Active Medications Generic Name Dose Route Start Last Admin Trade Name Freq PRN Reason Stop Dose Admin Acetaminophen 650 mg 03/17/18 23:19 Tylenol 650 Mg Supp RC Q6H PRN TEMP>=99.5F Pantoprazole Sodium 40 mg in 100 mls @ 20 mls/hr 03/17/18 16:00 03/18/18 06: 40 Protonix 40mg Ivpb IVPB 20 mls/hr .Q5H NEIL Administration Octreotide Acetate 1,250 mcg/ 252.5 mls @ 5.05 mls/hr 03/17/18 16:00 17:51 Sodium Chloride IV 25 mcg/hr .Q24H NEIL 5.05 mls/hr Protocol Administration 25 MCG/HR Lactated Ringer's 1,000 mls @ 100 mls/hr 03/17/18 23:30 03/17/18 23:40 Lactated Ringer's IV 100 mls/hr .Q10H NEIL Administration Insulin Human Lispro 0 units 03/17/18 23:30 03/18/18 06:38 Humalog Low SC 2 units Q6H NEIL Administration Protocol Ondansetron HCl 4 mg 03/17/18 23:19 Zofran Inj IVP Q4H PRN Nausea/Vomiting - Patient Studies Lab Studies: Lab Studies 03/18/18 03/18/18 03/18/18 Range/Units 07:48 06:50 06:50 WBC (4.5-11.0) 10^3/ul RBC (3.5-6.1) 10^6/uL Hgb (12.0-16.0) g/dL Hct (36.0-48.0) % MCV (80.0-105.0) fl MCH (25.0-35.0) pg MCHC (31.0-37.0) g/dl RDW (11.5-14.5) % Plt Count (120.0-450.0) 10^3/uL MPV (7.0-11.0) fl Gran % (50.0-68.0) % Lymph % (Auto) (22.0-35.0) % [place] % (Auto) (1.0-6.0) % Eos % (Auto) (1.5-5.0) % Baso % (Auto) (0.0-3.0) % Gran # (1.4-6.5) Lymph # (Auto) (1.2-3.4) [place] # (Auto) (0.1-0.6) Eos # (Auto) (0.0-0.7) Baso # (Auto) (0.0-2.0) K/mm3 PT 15.0 H (9.4-12.5) SECONDS INR 1.30 APTT 33.5 (25.1-36.5) Seconds Sodium (132-148) mmol/L Potassium (3.6-5.0) mmol/L Chloride (98-107) mmol/L Carbon Dioxide (21-33) mmol/L Anion Gap (10-20) BUN (7-21) mg/dL Creatinine (0.7-1.2) mg/dl Est GFR ( Amer) Est GFR (Non-Af Amer) POC Glucose (mg/dL) 212 H (65-110) mg/dL Random Glucose (70-110) mg/dL Calcium (8.4-10.5) mg/dL Phosphorus (2.5-4.5) mg/dL Magnesium (1.7-2.2) mg/dL Total Bilirubin (0.2-1.3) mg/dL Direct Bilirubin (0.0-0.4) mg/dL AST (14-36) U/L ALT (7-56) U/L Alkaline Phosphatase (38-126) U/L Ammonia (9-33) umol/L Total Protein (5.8-8.3) g/dL Albumin (3.0-4.8) g/dL Globulin gm/dL Albumin/Globulin Ratio (1.1-1.8) Triglycerides (35-160) mg/dL Cholesterol (130-200) mg/dL LDL Cholesterol Direct (0-129) mg/dL HDL Cholesterol (29-60) mg/dL Free T4 1.46 (0.78-2.19) ng/dL Thyroxine (T4) 8.8 (5.5-11.0) ug/dL TSH 3rd Generation 0.27 L (0.46-4.68) mIU/mL 03/18/18 03/18/18 03/18/18 Range/Units 06:50 06:50 06:50 WBC 4.9 (4.5-11.0) 10^3/ul RBC 2.37 L (3.5-6.1) 10^6/uL Hgb 8.1 L (12.0-16.0) g/dL Hct 22.9 L (36.0-48.0) % MCV 96.6 (80.0-105.0) fl MCH 34.2 (25.0-35.0) pg MCHC 35.4 (31.0-37.0) g/dl RDW 14.2 (11.5-14.5) % Plt Count 76 L (120.0-450.0) 10^3/uL MPV 10.5 (7.0-11.0) fl Gran % 67.7 (50.0-68.0) % Lymph % (Auto) 26.1 (22.0-35.0) % [place] % (Auto) 3.9 (1.0-6.0) % Eos % (Auto) 2.1 (1.5-5.0) % Baso % (Auto) 0.2 (0.0-3.0) % Gran # 3.29 (1.4-6.5) Lymph # (Auto) 1.3 (1.2-3.4) [place] # (Auto) 0.2 (0.1-0.6) Eos # (Auto) 0.1 (0.0-0.7) Baso # (Auto) 0.01 (0.0-2.0) K/mm3 PT (9.4-12.5) SECONDS INR APTT (25.1-36.5) Seconds Sodium 142 (132-148) mmol/L Potassium 4.0 (3.6-5.0) mmol/L Chloride 112 H (98-107) mmol/L Carbon Dioxide 22 (21-33) mmol/L Anion Gap 13 (10-20) BUN 38 H (7-21) mg/dL Creatinine 0.6 L (0.7-1.2) mg/dl Est GFR ( Amer) > 60 Est GFR (Non-Af Amer) > 60 POC Glucose (mg/dL) (65-110) mg/dL Random Glucose 186 H (70-110) mg/dL Calcium 8.0 L (8.4-10.5) mg/dL Phosphorus 4.5 (2.5-4.5) mg/dL Magnesium 1.9 (1.7-2.2) mg/dL Total Bilirubin 1.7 H (0.2-1.3) mg/dL Direct Bilirubin 0.4 (0.0-0.4) mg/dL AST 88 H D (14-36) U/L ALT 58 H (7-56) U/L Alkaline Phosphatase 71 (38-126) U/L Ammonia 112 H (9-33) umol/L Total Protein 5.9 (5.8-8.3) g/dL Albumin 2.7 L (3.0-4.8) g/dL Globulin 3.3 gm/dL Albumin/Globulin Ratio 0.8 L (1.1-1.8) Triglycerides 140 (35-160) mg/dL Cholesterol 146 (130-200) mg/dL LDL Cholesterol Direct 68 (0-129) mg/dL HDL Cholesterol 31 (29-60) mg/dL Free T4 (0.78-2.19) ng/dL Thyroxine (T4) (5.5-11.0) ug/dL TSH 3rd Generation (0.46-4.68) mIU/mL 03/18/18 03/18/18 03/18/18 Range/Units 06:50 05:58 00:35 WBC 4.9 5.9 D (4.5-11.0) 10^3/ul RBC 2.47 L 2.55 L (3.5-6.1) 10^6/uL Hgb 8.3 L 8.7 L D (12.0-16.0) g/dL Hct 23.8 L 24.7 L (36.0-48.0) % MCV 96.4 96.9 (80.0-105.0) fl MCH 33.6 34.1 (25.0-35.0) pg MCHC 34.9 35.2 (31.0-37.0) g/dl RDW 14.2 14.1 (11.5-14.5) % Plt Count 74 L 80 L (120.0-450.0) 10^3/uL MPV 10.9 10.3 (7.0-11.0) fl Gran % 67.4 61.1 (50.0-68.0) % Lymph % (Auto) 24.7 30.6 (22.0-35.0) % [place] % (Auto) 4.9 5.7 (1.0-6.0) % Eos % (Auto) 2.8 2.4 (1.5-5.0) % Baso % (Auto) 0.2 0.2 (0.0-3.0) % Gran # 3.32 3.62 (1.4-6.5) Lymph # (Auto) 1.2 1.8 (1.2-3.4) [place] # (Auto) 0.2 0.3 (0.1-0.6) Eos # (Auto) 0.1 0.1 (0.0-0.7) Baso # (Auto) 0.01 0.01 (0.0-2.0) K/mm3 PT (9.4-12.5) SECONDS INR APTT (25.1-36.5) Seconds Sodium (132-148) mmol/L Potassium (3.6-5.0) mmol/L Chloride (98-107) mmol/L Carbon Dioxide (21-33) mmol/L Anion Gap (10-20) BUN (7-21) mg/dL Creatinine (0.7-1.2) mg/dl Est GFR ( Amer) Est GFR (Non-Af Amer) POC Glucose (mg/dL) 205 H (65-110) mg/dL Random Glucose (70-110) mg/dL Calcium (8.4-10.5) mg/dL Phosphorus (2.5-4.5) mg/dL Magnesium (1.7-2.2) mg/dL Total Bilirubin (0.2-1.3) mg/dL Direct Bilirubin (0.0-0.4) mg/dL AST (14-36) U/L ALT (7-56) U/L Alkaline Phosphatase (38-126) U/L Ammonia (9-33) umol/L Total Protein (5.8-8.3) g/dL Albumin (3.0-4.8) g/dL Globulin gm/dL Albumin/Globulin Ratio (1.1-1.8) Triglycerides (35-160) mg/dL Cholesterol (130-200) mg/dL LDL Cholesterol Direct (0-129) mg/dL HDL Cholesterol (29-60) mg/dL Free T4 (0.78-2.19) ng/dL Thyroxine (T4) (5.5-11.0) ug/dL TSH 3rd Generation (0.46-4.68) mIU/mL 03/18/18 Range/Units 00:01 WBC (4.5-11.0) 10^3/ul RBC (3.5-6.1) 10^6/uL Hgb (12.0-16.0) g/dL Hct (36.0-48.0) % MCV (80.0-105.0) fl MCH (25.0-35.0) pg MCHC (31.0-37.0) g/dl RDW (11.5-14.5) % Plt Count (120.0-450.0) 10^3/uL MPV (7.0-11.0) fl Gran % (50.0-68.0) % Lymph % (Auto) (22.0-35.0) % [place] % (Auto) (1.0-6.0) % Eos % (Auto) (1.5-5.0) % Baso % (Auto) (0.0-3.0) % Gran # (1.4-6.5) Lymph # (Auto) (1.2-3.4) [place] # (Auto) (0.1-0.6) Eos # (Auto) (0.0-0.7) Baso # (Auto) (0.0-2.0) K/mm3 PT (9.4-12.5) SECONDS INR APTT (25.1-36.5) Seconds Sodium (132-148) mmol/L Potassium (3.6-5.0) mmol/L Chloride (98-107) mmol/L Carbon Dioxide (21-33) mmol/L Anion Gap (10-20) BUN (7-21) mg/dL Creatinine (0.7-1.2) mg/dl Est GFR ( Amer) Est GFR (Non-Af Amer) POC Glucose (mg/dL) 215 H (65-110) mg/dL Random Glucose (70-110) mg/dL Calcium (8.4-10.5) mg/dL Phosphorus (2.5-4.5) mg/dL Magnesium (1.7-2.2) mg/dL Total Bilirubin (0.2-1.3) mg/dL Direct Bilirubin (0.0-0.4) mg/dL AST (14-36) U/L ALT (7-56) U/L Alkaline Phosphatase (38-126) U/L Ammonia (9-33) umol/L Total Protein (5.8-8.3) g/dL Albumin (3.0-4.8) g/dL Globulin gm/dL Albumin/Globulin Ratio (1.1-1.8) Triglycerides (35-160) mg/dL Cholesterol (130-200) mg/dL LDL Cholesterol Direct (0-129) mg/dL HDL Cholesterol (29-60) mg/dL Free T4 (0.78-2.19) ng/dL Thyroxine (T4) (5.5-11.0) ug/dL TSH 3rd Generation (0.46-4.68) mIU/mL Laboratory Results - last 24 hr 03/18/18 03/18/18 03/18/18 00:01 00:35 05:58 WBC 5.9 D RBC 2.55 L Hgb 8.7 L D Hct 24.7 L MCV 96.9 MCH 34.1 MCHC 35.2 RDW 14.1 Plt Count 80 L MPV 10.3 Gran % 61.1 Lymph % (Auto) 30.6 [place] % (Auto) 5.7 Eos % (Auto) 2.4 Baso % (Auto) 0.2 Gran # 3.62 Lymph # (Auto) 1.8 [place] # (Auto) 0.3 Eos # (Auto) 0.1 Baso # (Auto) 0.01 PT INR APTT Sodium Potassium Chloride Carbon Dioxide Anion Gap BUN Creatinine Est GFR ( Amer) Est GFR (Non-Af Amer) POC Glucose (mg/dL) 215 H 205 H Random Glucose Calcium Phosphorus Magnesium Total Bilirubin Direct Bilirubin AST ALT Alkaline Phosphatase Ammonia Total Protein Albumin Globulin Albumin/Globulin Ratio Triglycerides Cholesterol LDL Cholesterol Direct HDL Cholesterol Free T4 Thyroxine (T4) TSH 3rd Generation 03/18/18 03/18/18 03/18/18 06:50 06:50 06:50 WBC 4.9 4.9 RBC 2.47 L 2.37 L Hgb 8.3 L 8.1 L Hct 23.8 L 22.9 L MCV 96.4 96.6 MCH 33.6 34.2 MCHC 34.9 35.4 RDW 14.2 14.2 Plt Count 74 L 76 L MPV 10.9 10.5 Gran % 67.4 67.7 Lymph % (Auto) 24.7 26.1 [place] % (Auto) 4.9 3.9 Eos % (Auto) 2.8 2.1 Baso % (Auto) 0.2 0.2 Gran # 3.32 3.29 Lymph # (Auto) 1.2 1.3 [place] # (Auto) 0.2 0.2 Eos # (Auto) 0.1 0.1 Baso # (Auto) 0.01 0.01 PT INR APTT Sodium 142 Potassium 4.0 Chloride 112 H Carbon Dioxide 22 Anion Gap 13 BUN 38 H Creatinine 0.6 L Est GFR ( Amer) > 60 Est GFR (Non-Af Amer) > 60 POC Glucose (mg/dL) Random Glucose 186 H Calcium 8.0 L Phosphorus 4.5 Magnesium 1.9 Total Bilirubin 1.7 H Direct Bilirubin 0.4 AST 88 H D ALT 58 H Alkaline Phosphatase 71 Ammonia Total Protein 5.9 Albumin 2.7 L Globulin 3.3 Albumin/Globulin Ratio 0.8 L Triglycerides 140 Cholesterol 146 LDL Cholesterol Direct 68 HDL Cholesterol 31 Free T4 Thyroxine (T4) TSH 3rd Generation 03/18/18 03/18/18 03/18/18 06:50 06:50 06:50 WBC RBC Hgb Hct MCV MCH MCHC RDW Plt Count MPV Gran % Lymph % (Auto) [place] % (Auto) Eos % (Auto) Baso % (Auto) Gran # Lymph # (Auto) [place] # (Auto) Eos # (Auto) Baso # (Auto) PT 15.0 H INR 1.30 APTT 33.5 Sodium Potassium Chloride Carbon Dioxide Anion Gap BUN Creatinine Est GFR ( Amer) Est GFR (Non-Af Amer) POC Glucose (mg/dL) Random Glucose Calcium Phosphorus Magnesium Total Bilirubin Direct Bilirubin AST ALT Alkaline Phosphatase Ammonia 112 H Total Protein Albumin Globulin Albumin/Globulin Ratio Triglycerides Cholesterol LDL Cholesterol Direct HDL Cholesterol Free T4 1.46 Thyroxine (T4) 8.8 TSH 3rd Generation 0.27 L 03/18/18 07:48 WBC RBC Hgb Hct MCV MCH MCHC RDW Plt Count MPV Gran % Lymph % (Auto) [place] % (Auto) Eos % (Auto) Baso % (Auto) Gran # Lymph # (Auto) [place] # (Auto) Eos # (Auto) Baso # (Auto) PT INR APTT Sodium Potassium Chloride Carbon Dioxide Anion Gap BUN Creatinine Est GFR ( Amer) Est GFR (Non-Af Amer) POC Glucose (mg/dL) 212 H Random Glucose Calcium Phosphorus Magnesium Total Bilirubin Direct Bilirubin AST ALT Alkaline Phosphatase Ammonia Total Protein Albumin Globulin Albumin/Globulin Ratio Triglycerides Cholesterol LDL Cholesterol Direct HDL Cholesterol Free T4 Thyroxine (T4) TSH 3rd Generation Fingerstick Blood Sugar Results: 205 Critical Care Progress Note - Nutrition Nutrition: Nutrition Category Date Time Status NPO Diet [DIET] Diets 03/17/18 Dinner Ordered Assessment/Plan - Assessment and Plan (Free Text) Assessment: This is a 62 year old female with PMH of DM, HT, cirrhosis and fatty liver presenting to the ICU for management of bloody vomiting and bloody stools secondary to possible variceal bleed due to known history of cirrhosis. Scheduled for endoscopy today. Plan: Neuro: -maintain normothermia -AAO x3, moving extremities spontaneously past midline Cardio: -maintain MAP>65 -Troponin is <0.01 signifying unlikely cardiac ischemic etiology -Will hold BP medications at this time Lungs: -SaO2 >90% -supplementary O2 PRN -CXR showed no active disease GI: -mild transaminitis present. AST/ALT 88/58. -NH4 is elevated at 112. Will monitor. Patient is currently AOx3. -NPO diet -octreotide drip -protonix drip -CT abd/pelvis shows heterogenous liver -Scheduled for endoscopy today -Abd US pending, GI bleeding scan pending -hepatitis panel pending -GI consult, Dr Lobo Renal: -maintain euvolemia -avoid nephrotoxic agents, hypochloremia -replace electrolytes as needed -BUN/Cr 38/0.6, will monitor. No concern for RADHA at this time -LR at 100 ml/hr Heme: -Hg today is 8.1 today from 8.7, will monitor in light of bleeding history. CBC Q6 -2 units PRBC on hold -hold anticoagulants -LDH, haptoglobin, peripheral smear pending -SCD for ppx Endo: -maintain euglycemia -insulin lispro q6 ID: -WBC is 4.9 today, afebrile. No concern for infectious etiology at this time -blood culture, urine culture pending <Fidencio Fields - Last Filed: 03/18/18 12:20> CCU Objective - Vital Signs / Intake & Output Intake and Output (Last 8hrs): Intake & Output 03/17/18 03/18/18 03/18/18 22:59 06:59 14:59 Intake Total 1001 Output Total 300 Balance 701 Weight 145 lb Intake: IV 1001 Left Antecubital 700 Right Antecubital 301 Output: Urine 300 Urethral (Cadet) 150 Urine, Voided 150 Other: Voiding Method Bedpan # Bowel Movements 0 - Medications Active Medications: Active Medications Generic Name Dose Route Start Last Admin Trade Name Freq PRN Reason Stop Dose Admin Acetaminophen 650 mg 03/17/18 23:19 Tylenol 650 Mg Supp RC Q6H PRN TEMP>=99.5F Pantoprazole Sodium 40 mg in 100 mls @ 20 mls/hr 03/17/18 16:00 03/18/18 12: 15 Protonix 40mg Ivpb IVPB 20 mls/hr .Q5H NEIL Administration Octreotide Acetate 1,250 mcg/ 252.5 mls @ 5.05 mls/hr 03/17/18 16:00 17:51 Sodium Chloride IV 25 mcg/hr .Q24H NEIL 5.05 mls/hr Protocol Administration 25 MCG/HR Lactated Ringer's 1,000 mls @ 100 mls/hr 03/17/18 23:30 03/17/18 23:40 Lactated Ringer's IV 100 mls/hr .Q10H NEIL Administration Insulin Human Lispro 0 units 03/17/18 23:30 03/18/18 06:38 Humalog Low SC 2 units Q6H NEIL Administration Protocol Lactulose 30 gm 03/18/18 11:00 03/18/18 10:48 Enulose PO 30 gm TID NEIL Administration Ondansetron HCl 4 mg 03/17/18 23:19 Zofran Inj IVP Q4H PRN Nausea/Vomiting - Patient Studies Lab Studies: Lab Studies 03/18/18 03/18/18 03/18/18 Range/Units 11:32 11:20 07:48 WBC (4.5-11.0) 10^3/ul RBC (3.5-6.1) 10^6/uL Hgb (12.0-16.0) g/dL Hct (36.0-48.0) % MCV (80.0-105.0) fl MCH (25.0-35.0) pg MCHC (31.0-37.0) g/dl RDW (11.5-14.5) % Plt Count (120.0-450.0) 10^3/uL MPV (7.0-11.0) fl Gran % (50.0-68.0) % Lymph % (Auto) (22.0-35.0) % [place] % (Auto) (1.0-6.0) % Eos % (Auto) (1.5-5.0) % Baso % (Auto) (0.0-3.0) % Gran # (1.4-6.5) Lymph # (Auto) (1.2-3.4) [place] # (Auto) (0.1-0.6) Eos # (Auto) (0.0-0.7) Baso # (Auto) (0.0-2.0) K/mm3 Differential Comment PT (9.4-12.5) SECONDS INR APTT (25.1-36.5) Seconds Sodium (132-148) mmol/L Potassium (3.6-5.0) mmol/L Chloride (98-107) mmol/L Carbon Dioxide (21-33) mmol/L Anion Gap (10-20) BUN (7-21) mg/dL Creatinine (0.7-1.2) mg/dl Est GFR ( Amer) Est GFR (Non-Af Amer) POC Glucose (mg/dL) 279 H 210 H 212 H (65-110) mg/dL Random Glucose (70-110) mg/dL Calcium (8.4-10.5) mg/dL Phosphorus (2.5-4.5) mg/dL Magnesium (1.7-2.2) mg/dL Total Bilirubin (0.2-1.3) mg/dL Direct Bilirubin (0.0-0.4) mg/dL AST (14-36) U/L ALT (7-56) U/L Alkaline Phosphatase (38-126) U/L Ammonia (9-33) umol/L Lactate Dehydrogenase (333-699) U/L Total Protein (5.8-8.3) g/dL Albumin (3.0-4.8) g/dL Globulin gm/dL Albumin/Globulin Ratio (1.1-1.8) Triglycerides (35-160) mg/dL Cholesterol (130-200) mg/dL LDL Cholesterol Direct (0-129) mg/dL HDL Cholesterol (29-60) mg/dL Free T4 (0.78-2.19) ng/dL Thyroxine (T4) (5.5-11.0) ug/dL TSH 3rd Generation (0.46-4.68) mIU/mL 03/18/18 03/18/18 03/18/18 Range/Units 06:50 06:50 06:50 WBC (4.5-11.0) 10^3/ul RBC (3.5-6.1) 10^6/uL Hgb (12.0-16.0) g/dL Hct (36.0-48.0) % MCV (80.0-105.0) fl MCH (25.0-35.0) pg MCHC (31.0-37.0) g/dl RDW (11.5-14.5) % Plt Count (120.0-450.0) 10^3/uL MPV (7.0-11.0) fl Gran % (50.0-68.0) % Lymph % (Auto) (22.0-35.0) % [place] % (Auto) (1.0-6.0) % Eos % (Auto) (1.5-5.0) % Baso % (Auto) (0.0-3.0) % Gran # (1.4-6.5) Lymph # (Auto) (1.2-3.4) [place] # (Auto) (0.1-0.6) Eos # (Auto) (0.0-0.7) Baso # (Auto) (0.0-2.0) K/mm3 Differential Comment PT 15.0 H (9.4-12.5) SECONDS INR 1.30 APTT 33.5 (25.1-36.5) Seconds Sodium (132-148) mmol/L Potassium (3.6-5.0) mmol/L Chloride (98-107) mmol/L Carbon Dioxide (21-33) mmol/L Anion Gap (10-20) BUN (7-21) mg/dL Creatinine (0.7-1.2) mg/dl Est GFR ( Amer) Est GFR (Non-Af Amer) POC Glucose (mg/dL) (65-110) mg/dL Random Glucose (70-110) mg/dL Calcium (8.4-10.5) mg/dL Phosphorus (2.5-4.5) mg/dL Magnesium (1.7-2.2) mg/dL Total Bilirubin (0.2-1.3) mg/dL Direct Bilirubin (0.0-0.4) mg/dL AST (14-36) U/L ALT (7-56) U/L Alkaline Phosphatase (38-126) U/L Ammonia (9-33) umol/L Lactate Dehydrogenase 530 (333-699) U/L Total Protein (5.8-8.3) g/dL Albumin (3.0-4.8) g/dL Globulin gm/dL Albumin/Globulin Ratio (1.1-1.8) Triglycerides (35-160) mg/dL Cholesterol (130-200) mg/dL LDL Cholesterol Direct (0-129) mg/dL HDL Cholesterol (29-60) mg/dL Free T4 1.46 (0.78-2.19) ng/dL Thyroxine (T4) 8.8 (5.5-11.0) ug/dL TSH 3rd Generation 0.27 L (0.46-4.68) mIU/mL 03/18/18 03/18/18 03/18/18 Range/Units 06:50 06:50 06:50 WBC 4.9 (4.5-11.0) 10^3/ul RBC 2.37 L (3.5-6.1) 10^6/uL Hgb 8.1 L (12.0-16.0) g/dL Hct 22.9 L (36.0-48.0) % MCV 96.6 (80.0-105.0) fl MCH 34.2 (25.0-35.0) pg MCHC 35.4 (31.0-37.0) g/dl RDW 14.2 (11.5-14.5) % Plt Count 76 L (120.0-450.0) 10^3/uL MPV 10.5 (7.0-11.0) fl Gran % 67.7 (50.0-68.0) % Lymph % (Auto) 26.1 (22.0-35.0) % [place] % (Auto) 3.9 (1.0-6.0) % Eos % (Auto) 2.1 (1.5-5.0) % Baso % (Auto) 0.2 (0.0-3.0) % Gran # 3.29 (1.4-6.5) Lymph # (Auto) 1.3 (1.2-3.4) [place] # (Auto) 0.2 (0.1-0.6) Eos # (Auto) 0.1 (0.0-0.7) Baso # (Auto) 0.01 (0.0-2.0) K/mm3 Differential Comment PT (9.4-12.5) SECONDS INR APTT (25.1-36.5) Seconds Sodium 142 (132-148) mmol/L Potassium 4.0 (3.6-5.0) mmol/L Chloride 112 H (98-107) mmol/L Carbon Dioxide 22 (21-33) mmol/L Anion Gap 13 (10-20) BUN 38 H (7-21) mg/dL Creatinine 0.6 L (0.7-1.2) mg/dl Est GFR ( Amer) > 60 Est GFR (Non-Af Amer) > 60 POC Glucose (mg/dL) (65-110) mg/dL Random Glucose 186 H (70-110) mg/dL Calcium 8.0 L (8.4-10.5) mg/dL Phosphorus 4.5 (2.5-4.5) mg/dL Magnesium 1.9 (1.7-2.2) mg/dL Total Bilirubin 1.7 H (0.2-1.3) mg/dL Direct Bilirubin 0.4 (0.0-0.4) mg/dL AST 88 H D (14-36) U/L ALT 58 H (7-56) U/L Alkaline Phosphatase 71 (38-126) U/L Ammonia 112 H (9-33) umol/L Lactate Dehydrogenase (333-699) U/L Total Protein 5.9 (5.8-8.3) g/dL Albumin 2.7 L (3.0-4.8) g/dL Globulin 3.3 gm/dL Albumin/Globulin Ratio 0.8 L (1.1-1.8) Triglycerides 140 (35-160) mg/dL Cholesterol 146 (130-200) mg/dL LDL Cholesterol Direct 68 (0-129) mg/dL HDL Cholesterol 31 (29-60) mg/dL Free T4 (0.78-2.19) ng/dL Thyroxine (T4) (5.5-11.0) ug/dL TSH 3rd Generation (0.46-4.68) mIU/mL 03/18/18 03/18/18 03/18/18 Range/Units 06:50 06:30 05:58 WBC 4.9 (4.5-11.0) 10^3/ul RBC 2.47 L (3.5-6.1) 10^6/uL Hgb 8.3 L (12.0-16.0) g/dL Hct 23.8 L (36.0-48.0) % MCV 96.4 (80.0-105.0) fl MCH 33.6 (25.0-35.0) pg MCHC 34.9 (31.0-37.0) g/dl RDW 14.2 (11.5-14.5) % Plt Count 74 L (120.0-450.0) 10^3/uL MPV 10.9 (7.0-11.0) fl Gran % 67.4 (50.0-68.0) % Lymph % (Auto) 24.7 (22.0-35.0) % [place] % (Auto) 4.9 (1.0-6.0) % Eos % (Auto) 2.8 (1.5-5.0) % Baso % (Auto) 0.2 (0.0-3.0) % Gran # 3.32 (1.4-6.5) Lymph # (Auto) 1.2 (1.2-3.4) [place] # (Auto) 0.2 (0.1-0.6) Eos # (Auto) 0.1 (0.0-0.7) Baso # (Auto) 0.01 (0.0-2.0) K/mm3 Differential Comment See pathology report PT (9.4-12.5) SECONDS INR APTT (25.1-36.5) Seconds Sodium (132-148) mmol/L Potassium (3.6-5.0) mmol/L Chloride (98-107) mmol/L Carbon Dioxide (21-33) mmol/L Anion Gap (10-20) BUN (7-21) mg/dL Creatinine (0.7-1.2) mg/dl Est GFR ( Amer) Est GFR (Non-Af Amer) POC Glucose (mg/dL) 205 H (65-110) mg/dL Random Glucose (70-110) mg/dL Calcium (8.4-10.5) mg/dL Phosphorus (2.5-4.5) mg/dL Magnesium (1.7-2.2) mg/dL Total Bilirubin (0.2-1.3) mg/dL Direct Bilirubin (0.0-0.4) mg/dL AST (14-36) U/L ALT (7-56) U/L Alkaline Phosphatase (38-126) U/L Ammonia (9-33) umol/L Lactate Dehydrogenase (333-699) U/L Total Protein (5.8-8.3) g/dL Albumin (3.0-4.8) g/dL Globulin gm/dL Albumin/Globulin Ratio (1.1-1.8) Triglycerides (35-160) mg/dL Cholesterol (130-200) mg/dL LDL Cholesterol Direct (0-129) mg/dL HDL Cholesterol (29-60) mg/dL Free T4 (0.78-2.19) ng/dL Thyroxine (T4) (5.5-11.0) ug/dL TSH 3rd Generation (0.46-4.68) mIU/mL 03/18/18 03/18/18 Range/Units 00:35 00:01 WBC 5.9 D (4.5-11.0) 10^3/ul RBC 2.55 L (3.5-6.1) 10^6/uL Hgb 8.7 L D (12.0-16.0) g/dL Hct 24.7 L (36.0-48.0) % MCV 96.9 (80.0-105.0) fl MCH 34.1 (25.0-35.0) pg MCHC 35.2 (31.0-37.0) g/dl RDW 14.1 (11.5-14.5) % Plt Count 80 L (120.0-450.0) 10^3/uL MPV 10.3 (7.0-11.0) fl Gran % 61.1 (50.0-68.0) % Lymph % (Auto) 30.6 (22.0-35.0) % [place] % (Auto) 5.7 (1.0-6.0) % Eos % (Auto) 2.4 (1.5-5.0) % Baso % (Auto) 0.2 (0.0-3.0) % Gran # 3.62 (1.4-6.5) Lymph # (Auto) 1.8 (1.2-3.4) [place] # (Auto) 0.3 (0.1-0.6) Eos # (Auto) 0.1 (0.0-0.7) Baso # (Auto) 0.01 (0.0-2.0) K/mm3 Differential Comment PT (9.4-12.5) SECONDS INR APTT (25.1-36.5) Seconds Sodium (132-148) mmol/L Potassium (3.6-5.0) mmol/L Chloride (98-107) mmol/L Carbon Dioxide (21-33) mmol/L Anion Gap (10-20) BUN (7-21) mg/dL Creatinine (0.7-1.2) mg/dl Est GFR ( Amer) Est GFR (Non-Af Amer) POC Glucose (mg/dL) 215 H (65-110) mg/dL Random Glucose (70-110) mg/dL Calcium (8.4-10.5) mg/dL Phosphorus (2.5-4.5) mg/dL Magnesium (1.7-2.2) mg/dL Total Bilirubin (0.2-1.3) mg/dL Direct Bilirubin (0.0-0.4) mg/dL AST (14-36) U/L ALT (7-56) U/L Alkaline Phosphatase (38-126) U/L Ammonia (9-33) umol/L Lactate Dehydrogenase (333-699) U/L Total Protein (5.8-8.3) g/dL Albumin (3.0-4.8) g/dL Globulin gm/dL Albumin/Globulin Ratio (1.1-1.8) Triglycerides (35-160) mg/dL Cholesterol (130-200) mg/dL LDL Cholesterol Direct (0-129) mg/dL HDL Cholesterol (29-60) mg/dL Free T4 (0.78-2.19) ng/dL Thyroxine (T4) (5.5-11.0) ug/dL TSH 3rd Generation (0.46-4.68) mIU/mL Laboratory Results - last 24 hr 03/18/18 03/18/18 03/18/18 00:01 00:35 05:58 WBC 5.9 D RBC 2.55 L Hgb 8.7 L D Hct 24.7 L MCV 96.9 MCH 34.1 MCHC 35.2 RDW 14.1 Plt Count 80 L MPV 10.3 Gran % 61.1 Lymph % (Auto) 30.6 [place] % (Auto) 5.7 Eos % (Auto) 2.4 Baso % (Auto) 0.2 Gran # 3.62 Lymph # (Auto) 1.8 [place] # (Auto) 0.3 Eos # (Auto) 0.1 Baso # (Auto) 0.01 Differential Comment PT INR APTT Sodium Potassium Chloride Carbon Dioxide Anion Gap BUN Creatinine Est GFR ( Amer) Est GFR (Non-Af Amer) POC Glucose (mg/dL) 215 H 205 H Random Glucose Calcium Phosphorus Magnesium Total Bilirubin Direct Bilirubin AST ALT Alkaline Phosphatase Ammonia Lactate Dehydrogenase Total Protein Albumin Globulin Albumin/Globulin Ratio Triglycerides Cholesterol LDL Cholesterol Direct HDL Cholesterol Free T4 Thyroxine (T4) TSH 3rd Generation 03/18/18 03/18/18 03/18/18 06:30 06:50 06:50 WBC 4.9 4.9 RBC 2.47 L 2.37 L Hgb 8.3 L 8.1 L Hct 23.8 L 22.9 L MCV 96.4 96.6 MCH 33.6 34.2 MCHC 34.9 35.4 RDW 14.2 14.2 Plt Count 74 L 76 L MPV 10.9 10.5 Gran % 67.4 67.7 Lymph % (Auto) 24.7 26.1 [place] % (Auto) 4.9 3.9 Eos % (Auto) 2.8 2.1 Baso % (Auto) 0.2 0.2 Gran # 3.32 3.29 Lymph # (Auto) 1.2 1.3 [place] # (Auto) 0.2 0.2 Eos # (Auto) 0.1 0.1 Baso # (Auto) 0.01 0.01 Differential Comment See pathology report PT INR APTT Sodium Potassium Chloride Carbon Dioxide Anion Gap BUN Creatinine Est GFR ( Amer) Est GFR (Non-Af Amer) POC Glucose (mg/dL) Random Glucose Calcium Phosphorus Magnesium Total Bilirubin Direct Bilirubin AST ALT Alkaline Phosphatase Ammonia Lactate Dehydrogenase Total Protein Albumin Globulin Albumin/Globulin Ratio Triglycerides Cholesterol LDL Cholesterol Direct HDL Cholesterol Free T4 Thyroxine (T4) TSH 3rd Generation 03/18/18 03/18/18 03/18/18 06:50 06:50 06:50 WBC RBC Hgb Hct MCV MCH MCHC RDW Plt Count MPV Gran % Lymph % (Auto) [place] % (Auto) Eos % (Auto) Baso % (Auto) Gran # Lymph # (Auto) [place] # (Auto) Eos # (Auto) Baso # (Auto) Differential Comment PT INR APTT Sodium 142 Potassium 4.0 Chloride 112 H Carbon Dioxide 22 Anion Gap 13 BUN 38 H Creatinine 0.6 L Est GFR ( Amer) > 60 Est GFR (Non-Af Amer) > 60 POC Glucose (mg/dL) Random Glucose 186 H Calcium 8.0 L Phosphorus 4.5 Magnesium 1.9 Total Bilirubin 1.7 H Direct Bilirubin 0.4 AST 88 H D ALT 58 H Alkaline Phosphatase 71 Ammonia 112 H Lactate Dehydrogenase Total Protein 5.9 Albumin 2.7 L Globulin 3.3 Albumin/Globulin Ratio 0.8 L Triglycerides 140 Cholesterol 146 LDL Cholesterol Direct 68 HDL Cholesterol 31 Free T4 1.46 Thyroxine (T4) 8.8 TSH 3rd Generation 0.27 L 03/18/18 03/18/18 03/18/18 06:50 06:50 07:48 WBC RBC Hgb Hct MCV MCH MCHC RDW Plt Count MPV Gran % Lymph % (Auto) [place] % (Auto) Eos % (Auto) Baso % (Auto) Gran # Lymph # (Auto) [place] # (Auto) Eos # (Auto) Baso # (Auto) Differential Comment PT 15.0 H INR 1.30 APTT 33.5 Sodium Potassium Chloride Carbon Dioxide Anion Gap BUN Creatinine Est GFR ( Amer) Est GFR (Non-Af Amer) POC Glucose (mg/dL) 212 H Random Glucose Calcium Phosphorus Magnesium Total Bilirubin Direct Bilirubin AST ALT Alkaline Phosphatase Ammonia Lactate Dehydrogenase 530 Total Protein Albumin Globulin Albumin/Globulin Ratio Triglycerides Cholesterol LDL Cholesterol Direct HDL Cholesterol Free T4 Thyroxine (T4) TSH 3rd Generation 03/18/18 03/18/18 11:20 11:32 WBC RBC Hgb Hct MCV MCH MCHC RDW Plt Count MPV Gran % Lymph % (Auto) [place] % (Auto) Eos % (Auto) Baso % (Auto) Gran # Lymph # (Auto) [place] # (Auto) Eos # (Auto) Baso # (Auto) Differential Comment PT INR APTT Sodium Potassium Chloride Carbon Dioxide Anion Gap BUN Creatinine Est GFR ( Amer) Est GFR (Non-Af Amer) POC Glucose (mg/dL) 210 H 279 H Random Glucose Calcium Phosphorus Magnesium Total Bilirubin Direct Bilirubin AST ALT Alkaline Phosphatase Ammonia Lactate Dehydrogenase Total Protein Albumin Globulin Albumin/Globulin Ratio Triglycerides Cholesterol LDL Cholesterol Direct HDL Cholesterol Free T4 Thyroxine (T4) TSH 3rd Generation Critical Care Progress Note - Nutrition Nutrition: Nutrition Category Date Time Status NPO Diet [DIET] Diets 03/17/18 Dinner Ordered Assessment/Plan - Assessment and Plan (Free Text) Assessment: Patient seen and examined on rounds with resident, agree with note with following additions/exceptions: Patient is 62yo female with PMhx HTN, DM, fatty liver cirrhosis, presented with 2 episodes of hematemesis, and 6 episodes of bloody BMs at home. No further bloody BMs while in hospital. Pt denies dizziness, abd pain, cp, sob. Labs, imaging, chart reviewed. Patient HH downtrending GI following, EGD today GIB Cirrhosis DM HTN Recommend: - supp o2 as needed - NO ID issues - Hold BP meds - NPO - IVF - Ocreotide drip - PPI drip - CBC q6hr - maintain 2 large bore PIVs - DVT ppx, SCDs - monitor in MICU
[2018-03-18 12:41] LABS: HEPATITIS B SURFACE AG Negative (NEGATIVE)
[2018-03-18] MEDS ORDERED: Propofol 10 mg/ml Inj (20 ML) ONE ×2 (12:44→12:54)
[2018-03-18] MEDS ORDERED: Lidocaine 1% Inj (20ml) ONE (12:45)
[2018-03-18] MEDS ORDERED: Etomidate 20 mg/10ml Inj IV ONE (12:45)
[2018-03-18 12:47] LABS: HEPATITIS A IGM NEGATIVE (NEGATIVE); HEPATITIS B CORE AB NEGATIVE (NEGATIVE)
[2018-03-18 12:59] LABS: HEPATITIS C ANTIBODY NEGATIVE (NEGATIVE)
--- NOTE | 2018-03-18 14:04 | CON ---
Copied To: Dusty Lobo MD Attending MD: Dusty Lobo MD DATE: 03/18/2018 REQUESTING PHYSICIAN: Benny George MD. REASON FOR CONSULT: I have been asked to see this 62-year-old female for GI bleeding. The patient apparently was diagnosed with cirrhosis of the liver several months ago. Etiology of the cirrhosis is unclear. The patient came to the hospital with a history of hematemesis of bright red blood one day prior to admission. She also saw bright red blood per rectum as well as black tarry bowel movements. She had six bloody bowel movements in the 24 hours prior to her coming in. She also had four to five episodes of vomiting bright red blood the day before she came in. She denies any abdominal pain, fever, chills, chest pain, hepatitis. The patient that has never had a colonoscopy. She denies alcohol use. She denies any chest pain or shortness of breath. On admission to the Emergency Room, her hemoglobin was 10.8 with a BUN of 37, creatinine 0.6. PAST MEDICAL HISTORY: Notable for hypertension, diabetes mellitus, recently diagnosed cirrhosis of the liver, fatty liver. SOCIAL HISTORY She denies alcohol use or cigarette smoking. FAMILY HISTORY: Noncontributory. MEDICATIONS AT HOME: Include Januvia, metoprolol, aspirin and lisinopril. REVIEW OF SYSTEMS: The 14-point review of systems is notable for hematemesis of bright red blood, rectal bleeding and melena. PHYSICAL EXAMINATION: GENERAL: A middle-aged female lying in bed in no acute distress. VITAL SIGNS: Reveal temperature of 98.8, blood pressure 143/69, heart rate of 100. HEENT: Reveal sclerae to be white. Conjunctivae pale. NECK: Supple. CHEST: Lungs are clear. HEART: Exam reveals regular rate and rhythm. ABDOMEN: Flabby, soft, nontender. EXTREMITIES: Show no edema. There is no asterixis. DATA: Laboratory data reveal this morning, white blood cell count 4.9, hemoglobin 8.1, platelet count 76,000. Coags reveal PT 15, INR 1.3. Chemistries reveal from this morning, BUN 38, creatinine 0.6, AST 88, ALT 58, total bilirubin 1.7, alkaline phosphatase of 71. CT scan of the abdomen and pelvis reveal cirrhosis of the liver. No ascites. No varices seen. IMPRESSION: A 62-year-old female with GI bleeding. This appears to be an upper GI bleed. One must rule out variceal bleeding. RECOMMENDATIONS: 1. Transfuse packed red blood cells to hematocrit of 30%. 2. The patient was started on both octreotide and pantoprazole drips in the Emergency Room upon arrival to the ER, we will continue this. 3. I will schedule the patient for an urgent endoscopy for this morning. Dusty Lobo MD
[2018-03-18 20:00] LABS: EOS # 0.1 (0.0-0.7); EOS % 3.1 % (1.5-5.0); GRAN # 2.34 (1.4-6.5); GRAN % 61.5 % (50.0-68.0); LYMPH # 1.1 (1.2-3.4); LYMPH % 29.9 % (22.0-35.0); MEAN CELL VOLUME 93.9 fl (80.0-105.0); MEAN CORPUSCULAR HEMOGLOBIN 32.9 pg (25.0-35.0); MEAN PLATELET VOLUME 10.3 fl (7.0-11.0); MONO # 0.2 (0.1-0.6); MONO % 5.5 % (1.0-6.0); RBC 3.13 10^6/uL (3.5-6.1); RED CELL DISTRIBUTION WIDTH 14.9 % (11.5-14.5); WHITE BLOOD COUNT 3.8 10^3/ul (4.5-11.0)
[2018-03-18 20:03] LABS: HEMOGLOBIN 10.3 g/dL (12.0-16.0)
[2018-03-19] MEDS: Pantoprazole 40mg/100mL NS 40 MG/100 ML BAG IVPB SCH ×4 (04:12→20:24)
[2018-03-19] MEDS: Insulin Lispro (humaLOG) LOW Coverage SC SCH ×4 (05:43→23:14)
[2018-03-19] MEDS: Lactated Ringer's 1,000 ML IV SCH ×2 (05:54→17:20)
[2018-03-19 07:55] LABS: INR 1.21; PARTIAL THROMBOPLASTIN TIME 33.7 Seconds (25.1-36.5)
[2018-03-19 08:22] LABS: ALB/GLOB RATIO 0.9 (1.1-1.8); ALBUMIN 2.6 g/dL (3.0-4.8); ALT/SGPT 66 U/L (7-56); AST/SGOT 114 U/L (14-36); BILIRUBIN,DIRECT 0.8 mg/dL (0.0-0.4); BLOOD UREA NITROGEN 25 mg/dL (7-21); CALCIUM 7.8 mg/dL (8.4-10.5); GFR NON-AFRICAN AMERICAN > 60
[2018-03-19 08:25] LABS: EOS # 0.1 (0.0-0.7); GRAN # 1.49 (1.4-6.5); GRAN % 55.1 % (50.0-68.0); HEMOGLOBIN 9.7 g/dL (12.0-16.0); LYMPH % 35.2 % (22.0-35.0); MEAN CELL VOLUME 93.4 fl (80.0-105.0); MEAN CORPUSCULAR HEMOGLOBIN 33.7 pg (25.0-35.0); MEAN CORPUSCULAR HGB CONC 36.1 g/dl (31.0-37.0); MEAN PLATELET VOLUME 9.9 fl (7.0-11.0); MONO # 0.2 (0.1-0.6); MONO % 6.7 % (1.0-6.0); RBC 2.88 10^6/uL (3.5-6.1); RED CELL DISTRIBUTION WIDTH 15.1 % (11.5-14.5)
[2018-03-19 08:40] LABS: WHITE BLOOD COUNT 2.7 10^3/ul (4.5-11.0)
[2018-03-19] MEDS ORDERED: Ergocalciferol 50,000 Intl Units Cap PO SCH (08:45)
--- NOTE | 2018-03-19 08:49 | PN ---
Copied To: Dusty Lobo MD Attending MD: Dusty Lobo MD DATE: 03/19/2018 SUBJECTIVE: The patient is lying in bed. She has not had any further hematemesis or rectal bleeding. The patient did have two small amounts of dark liquid stool as per her nurse earlier this morning. She denies any abdominal pain. The patient is awake, alert. PHYSICAL EXAMINATION: VITAL SIGNS: Reveal that she is afebrile. Heart rate is 74, blood pressure 131/56. HEENT: Reveal sclerae to be white. Conjunctivae pink. NECK: Supple. CHEST: Reveal lungs to be clear. HEART: Reveals regular rate and rhythm. ABDOMEN: Flabby, soft, nontender. EXTREMITIES: Show no edema. LABORATORY DATA: Reveal hemoglobin of 10.3 this morning with a white blood cell count 3.8, platelet count is 65,000. IMPRESSION: A 62-year-old female with cryptogenic cirrhosis, possible non-alcoholic steatohepatitis with a significant upper GI bleed, anemia secondary to large duodenal ulcer. The patient is also noted to have small pyloric channel ulcer and gastric erosions. Bleeding appears to have stopped. Her blood count is up to 10.3 after blood transfusions. Clinically, she does not have hepatic encephalopathy despite an elevated serum ammonia level. RECOMMENDATIONS: 1. We will advance the patient to clear liquid diet. 2. Continue ICU monitoring given the recent massive upper GI bleed. 3. Follow serial hematocrits. 4. I will start the patient on Carafate suspension in addition to her Protonix drip. If the patient's count remain stable in the next 24 hours, she can be transferred to a telemetry bed. Dusty Lobo MD
--- NOTE | 2018-03-19 10:59 | CP.CCUPN ---
<Carolina Pereira - Last Filed: 03/19/18 11:02> CCU Subjective - Physician Review Events Since Last Encounter (Free Text): Carolina Pereira, PGY-1 ICU Progress Note Patient seen and examined at bedside. No acute events overnight. Will monitor in the ICU for one more day per GI and transfer tomorrow if stable. Denies CP, SOB, abdominal pain, urinary complaints, back pain and headache. ROS noted here , otherwise unremarkable. CCU Objective - Vital Signs / Intake & Output Intake and Output (Last 8hrs): Intake & Output 03/18/18 03/19/18 03/19/18 22:59 06:59 14:59 Intake Total 590 1500 Output Total 250 350 Balance 340 1150 Intake: IV 240 1500 LR 1200 protonix 240 240 sonam 60 Blood Product 325 Red Blood Cells Cpd As1 325 Lr Unit [id number] Other 25 Red Blood Cells Cpd As1 25 Lr Unit [id number] Output: Urine 350 Urine, Voided 350 Stool 250 Other: # Bowel Movements 2 3 - Physical Exam Head: Positive for: Atraumatic, Normocephalic Pupils: Positive for: PERRL Extroacular Muscles: Positive for: EOMI Mouth: Positive for: Moist Mucous Membranes Neck: Positive for: Normal Range of Motion Respiratory/Chest: Positive for: Clear to Auscultation, Good Air Exchange. Negative for: Respiratory Distress, Accessory Muscle Use Cardiovascular: Positive for: Regular Rate and Rhythm, Normal S1, S2. Negative for: Murmurs Abdomen: Negative for: Tenderness, Distention, Peritoneal Signs, Rebound, Guarding Back: Positive for: Normal Inspection, Midline Tenderness, Paraspinal Tenderness. Negative for: CVA Tenderness Upper Extremity: Positive for: Normal ROM, NORMAL PULSES Lower Extremity: Positive for: NORMAL PULSES, Normal ROM Neurological: Positive for: GCS=15, CN II-XII Intact, Speech Normal Skin: Positive for: Warm, Dry, Normal Color. Negative for: Rashes Psychiatric: Positive for: Alert, Oriented x 3 - Medications Active Medications: Active Medications Generic Name Dose Route Start Last Admin Trade Name Freq PRN Reason Stop Dose Admin Acetaminophen 650 mg 03/17/18 23:19 Tylenol 650 Mg Supp RC Q6H PRN TEMP>=99.5F Ergocalciferol 1 cap 03/19/18 08:45 03/19/18 09:25 Drisdol 50,000 Intl Units Cap PO 1 cap Q7D NEIL Administration Pantoprazole Sodium 40 mg in 100 mls @ 20 mls/hr 03/17/18 16:00 03/19/18 04: 12 Protonix 40mg Ivpb IVPB 20 mls/hr .Q5H NEIL Administration Lactated Ringer's 1,000 mls @ 100 mls/hr 03/17/18 23:30 03/19/18 05:54 Lactated Ringer's IV 100 mls/hr .Q10H NEIL Administration Insulin Human Lispro 0 units 03/17/18 23:30 03/19/18 05:43 Humalog Low SC Not Given Q6H [facility] Protocol Lactulose 30 gm 03/18/18 11:00 03/19/18 09:25 Enulose PO 30 gm TID NEIL Administration Metoprolol Succinate 100 mg 03/20/18 10:00 Toprol Xl PO DAILY NEIL Ondansetron HCl 4 mg 03/17/18 23:19 Zofran Inj IVP Q4H PRN Nausea/Vomiting Sucralfate 1 gm 03/19/18 11:30 Carafate Oral Susp PO ACHS NEIL - Patient Studies Lab Studies: Microbiology Studies 03/17/18 18:54 MRSA Culture (Admit) - Final Naris MRSA NOT DETECTED Lab Studies 03/19/18 03/19/18 03/19/18 Range/Units 08:30 08:10 07:40 WBC 2.7 L* D (4.5-11.0) 10^3/ul RBC 2.88 L (3.5-6.1) 10^6/uL Hgb 9.7 L (12.0-16.0) g/dL Hct 26.9 L (36.0-48.0) % MCV 93.4 (80.0-105.0) fl MCH 33.7 (25.0-35.0) pg MCHC 36.1 (31.0-37.0) g/dl RDW 15.1 H (11.5-14.5) % Plt Count 50 L (120.0-450.0) 10^3/uL Manual Plt Count 88 L (120-450) K/mm3 MPV 9.9 (7.0-11.0) fl Gran % 55.1 (50.0-68.0) % Lymph % (Auto) 35.2 H (22.0-35.0) % Lamar % (Auto) 6.7 H (1.0-6.0) % Eos % (Auto) 3.0 (1.5-5.0) % Baso % (Auto) 0.0 (0.0-3.0) % Gran # 1.49 (1.4-6.5) Lymph # (Auto) 1.0 L (1.2-3.4) Lamar # (Auto) 0.2 (0.1-0.6) Eos # (Auto) 0.1 (0.0-0.7) Baso # (Auto) 0.00 (0.0-2.0) K/mm3 Differential Comment Platelet Evaluation Haptoglobin (30.0-200.0) mg/dL PT 14.0 H (9.4-12.5) SECONDS INR 1.21 APTT 33.7 (25.1-36.5) Seconds Sodium (132-148) mmol/L Potassium (3.6-5.0) mmol/L Chloride (98-107) mmol/L Carbon Dioxide (21-33) mmol/L Anion Gap (10-20) BUN (7-21) mg/dL Creatinine (0.7-1.2) mg/dl Est GFR ( Amer) Est GFR (Non-Af Amer) POC Glucose (mg/dL) (65-110) mg/dL Random Glucose (70-110) mg/dL Hemoglobin A1c (4.2-6.5) % Fructosamine (190-270) umol/L Calcium (8.4-10.5) mg/dL Phosphorus (2.5-4.5) mg/dL Magnesium (1.7-2.2) mg/dL Total Bilirubin (0.2-1.3) mg/dL Direct Bilirubin (0.0-0.4) mg/dL AST (14-36) U/L ALT (7-56) U/L Alkaline Phosphatase (38-126) U/L Ammonia (9-33) umol/L Lactate Dehydrogenase (333-699) U/L Total Protein (5.8-8.3) g/dL Albumin (3.0-4.8) g/dL Globulin gm/dL Albumin/Globulin Ratio (1.1-1.8) 25-OH Vitamin D Total (30.0-100.0) NG/ML Hepatitis A IgM Ab (NEGATIVE) Hep Bs Antigen (NEGATIVE) Hep B Core IgM Ab (NEGATIVE) Hepatitis C Antibody (NEGATIVE) 03/19/18 03/19/18 03/19/18 Range/Units 07:40 07:40 07:40 WBC Cancelled (4.5-11.0) 10^3/ul RBC Cancelled (3.5-6.1) 10^6/uL Hgb Cancelled (12.0-16.0) g/dL Hct Cancelled (36.0-48.0) % MCV Cancelled (80.0-105.0) fl MCH Cancelled (25.0-35.0) pg MCHC Cancelled (31.0-37.0) g/dl RDW Cancelled (11.5-14.5) % Plt Count Cancelled (120.0-450.0) 10^3/uL Manual Plt Count (120-450) K/mm3 MPV Cancelled (7.0-11.0) fl Gran % Cancelled (50.0-68.0) % Lymph % (Auto) Cancelled (22.0-35.0) % Lamar % (Auto) Cancelled (1.0-6.0) % Eos % (Auto) Cancelled (1.5-5.0) % Baso % (Auto) Cancelled (0.0-3.0) % Gran # Cancelled (1.4-6.5) Lymph # (Auto) Cancelled (1.2-3.4) Lamar # (Auto) Cancelled (0.1-0.6) Eos # (Auto) Cancelled (0.0-0.7) Baso # (Auto) Cancelled (0.0-2.0) K/mm3 Differential Comment Platelet Evaluation Cancelled Haptoglobin (30.0-200.0) mg/dL PT (9.4-12.5) SECONDS INR APTT (25.1-36.5) Seconds Sodium 143 (132-148) mmol/L Potassium 3.6 (3.6-5.0) mmol/L Chloride 112 H (98-107) mmol/L Carbon Dioxide 21 (21-33) mmol/L Anion Gap 13 (10-20) BUN 25 H (7-21) mg/dL Creatinine 0.6 L (0.7-1.2) mg/dl Est GFR ( Amer) > 60 Est GFR (Non-Af Amer) > 60 POC Glucose (mg/dL) (65-110) mg/dL Random Glucose 178 H (70-110) mg/dL Hemoglobin A1c (4.2-6.5) % Fructosamine (190-270) umol/L Calcium 7.8 L (8.4-10.5) mg/dL Phosphorus 3.3 (2.5-4.5) mg/dL Magnesium 1.9 (1.7-2.2) mg/dL Total Bilirubin 2.8 H (0.2-1.3) mg/dL Direct Bilirubin 0.8 H (0.0-0.4) mg/dL AST 114 H D (14-36) U/L ALT 66 H (7-56) U/L Alkaline Phosphatase 70 (38-126) U/L Ammonia 39 H (9-33) umol/L Lactate Dehydrogenase (333-699) U/L Total Protein 5.6 L (5.8-8.3) g/dL Albumin 2.6 L (3.0-4.8) g/dL Globulin 3.0 gm/dL Albumin/Globulin Ratio 0.9 L (1.1-1.8) 25-OH Vitamin D Total (30.0-100.0) NG/ML Hepatitis A IgM Ab (NEGATIVE) Hep Bs Antigen (NEGATIVE) Hep B Core IgM Ab (NEGATIVE) Hepatitis C Antibody (NEGATIVE) 03/19/18 03/18/18 03/18/18 Range/Units 05:42 22:23 19:45 WBC 3.8 L D (4.5-11.0) 10^3/ul RBC 3.13 L (3.5-6.1) 10^6/uL Hgb 10.3 L D (12.0-16.0) g/dL Hct 29.4 L (36.0-48.0) % MCV 93.9 (80.0-105.0) fl MCH 32.9 (25.0-35.0) pg MCHC 35.0 (31.0-37.0) g/dl RDW 14.9 H (11.5-14.5) % Plt Count 65 L (120.0-450.0) 10^3/uL Manual Plt Count (120-450) K/mm3 MPV 10.3 (7.0-11.0) fl Gran % 61.5 (50.0-68.0) % Lymph % (Auto) 29.9 (22.0-35.0) % Lamar % (Auto) 5.5 (1.0-6.0) % Eos % (Auto) 3.1 (1.5-5.0) % Baso % (Auto) 0.0 (0.0-3.0) % Gran # 2.34 (1.4-6.5) Lymph # (Auto) 1.1 L (1.2-3.4) Lamar # (Auto) 0.2 (0.1-0.6) Eos # (Auto) 0.1 (0.0-0.7) Baso # (Auto) 0.00 (0.0-2.0) K/mm3 Differential Comment Platelet Evaluation Haptoglobin (30.0-200.0) mg/dL PT (9.4-12.5) SECONDS INR APTT (25.1-36.5) Seconds Sodium (132-148) mmol/L Potassium (3.6-5.0) mmol/L Chloride (98-107) mmol/L Carbon Dioxide (21-33) mmol/L Anion Gap (10-20) BUN (7-21) mg/dL Creatinine (0.7-1.2) mg/dl Est GFR ( Amer) Est GFR (Non-Af Amer) POC Glucose (mg/dL) 183 H 176 H (65-110) mg/dL Random Glucose (70-110) mg/dL Hemoglobin A1c (4.2-6.5) % Fructosamine (190-270) umol/L Calcium (8.4-10.5) mg/dL Phosphorus (2.5-4.5) mg/dL Magnesium (1.7-2.2) mg/dL Total Bilirubin (0.2-1.3) mg/dL Direct Bilirubin (0.0-0.4) mg/dL AST (14-36) U/L ALT (7-56) U/L Alkaline Phosphatase (38-126) U/L Ammonia (9-33) umol/L Lactate Dehydrogenase (333-699) U/L Total Protein (5.8-8.3) g/dL Albumin (3.0-4.8) g/dL Globulin gm/dL Albumin/Globulin Ratio (1.1-1.8) 25-OH Vitamin D Total (30.0-100.0) NG/ML Hepatitis A IgM Ab (NEGATIVE) Hep Bs Antigen (NEGATIVE) Hep B Core IgM Ab (NEGATIVE) Hepatitis C Antibody (NEGATIVE) 03/18/18 03/18/18 03/18/18 Range/Units 17:16 11:32 11:20 WBC (4.5-11.0) 10^3/ul RBC (3.5-6.1) 10^6/uL Hgb (12.0-16.0) g/dL Hct (36.0-48.0) % MCV (80.0-105.0) fl MCH (25.0-35.0) pg MCHC (31.0-37.0) g/dl RDW (11.5-14.5) % Plt Count (120.0-450.0) 10^3/uL Manual Plt Count (120-450) K/mm3 MPV (7.0-11.0) fl Gran % (50.0-68.0) % Lymph % (Auto) (22.0-35.0) % Lamar % (Auto) (1.0-6.0) % Eos % (Auto) (1.5-5.0) % Baso % (Auto) (0.0-3.0) % Gran # (1.4-6.5) Lymph # (Auto) (1.2-3.4) Lamar # (Auto) (0.1-0.6) Eos # (Auto) (0.0-0.7) Baso # (Auto) (0.0-2.0) K/mm3 Differential Comment Platelet Evaluation Haptoglobin (30.0-200.0) mg/dL PT (9.4-12.5) SECONDS INR APTT (25.1-36.5) Seconds Sodium (132-148) mmol/L Potassium (3.6-5.0) mmol/L Chloride (98-107) mmol/L Carbon Dioxide (21-33) mmol/L Anion Gap (10-20) BUN (7-21) mg/dL Creatinine (0.7-1.2) mg/dl Est GFR ( Amer) Est GFR (Non-Af Amer) POC Glucose (mg/dL) 224 H 279 H 210 H (65-110) mg/dL Random Glucose (70-110) mg/dL Hemoglobin A1c (4.2-6.5) % Fructosamine (190-270) umol/L Calcium (8.4-10.5) mg/dL Phosphorus (2.5-4.5) mg/dL Magnesium (1.7-2.2) mg/dL Total Bilirubin (0.2-1.3) mg/dL Direct Bilirubin (0.0-0.4) mg/dL AST (14-36) U/L ALT (7-56) U/L Alkaline Phosphatase (38-126) U/L Ammonia (9-33) umol/L Lactate Dehydrogenase (333-699) U/L Total Protein (5.8-8.3) g/dL Albumin (3.0-4.8) g/dL Globulin gm/dL Albumin/Globulin Ratio (1.1-1.8) 25-OH Vitamin D Total (30.0-100.0) NG/ML Hepatitis A IgM Ab (NEGATIVE) Hep Bs Antigen (NEGATIVE) Hep B Core IgM Ab (NEGATIVE) Hepatitis C Antibody (NEGATIVE) 03/18/18 03/18/18 03/18/18 Range/Units 06:50 06:50 06:50 WBC (4.5-11.0) 10^3/ul RBC (3.5-6.1) 10^6/uL Hgb (12.0-16.0) g/dL Hct (36.0-48.0) % MCV (80.0-105.0) fl MCH (25.0-35.0) pg MCHC (31.0-37.0) g/dl RDW (11.5-14.5) % Plt Count (120.0-450.0) 10^3/uL Manual Plt Count (120-450) K/mm3 MPV (7.0-11.0) fl Gran % (50.0-68.0) % Lymph % (Auto) (22.0-35.0) % Lamar % (Auto) (1.0-6.0) % Eos % (Auto) (1.5-5.0) % Baso % (Auto) (0.0-3.0) % Gran # (1.4-6.5) Lymph # (Auto) (1.2-3.4) Lamar # (Auto) (0.1-0.6) Eos # (Auto) (0.0-0.7) Baso # (Auto) (0.0-2.0) K/mm3 Differential Comment Platelet Evaluation Haptoglobin < 20.0 L (30.0-200.0) mg/dL PT (9.4-12.5) SECONDS INR APTT (25.1-36.5) Seconds Sodium (132-148) mmol/L Potassium (3.6-5.0) mmol/L Chloride (98-107) mmol/L Carbon Dioxide (21-33) mmol/L Anion Gap (10-20) BUN (7-21) mg/dL Creatinine (0.7-1.2) mg/dl Est GFR ( Amer) Est GFR (Non-Af Amer) POC Glucose (mg/dL) (65-110) mg/dL Random Glucose (70-110) mg/dL Hemoglobin A1c (4.2-6.5) % Fructosamine 329 H (190-270) umol/L Calcium (8.4-10.5) mg/dL Phosphorus (2.5-4.5) mg/dL Magnesium (1.7-2.2) mg/dL Total Bilirubin (0.2-1.3) mg/dL Direct Bilirubin (0.0-0.4) mg/dL AST (14-36) U/L ALT (7-56) U/L Alkaline Phosphatase (38-126) U/L Ammonia (9-33) umol/L Lactate Dehydrogenase 530 (333-699) U/L Total Protein (5.8-8.3) g/dL Albumin (3.0-4.8) g/dL Globulin gm/dL Albumin/Globulin Ratio (1.1-1.8) 25-OH Vitamin D Total (30.0-100.0) NG/ML Hepatitis A IgM Ab (NEGATIVE) Hep Bs Antigen (NEGATIVE) Hep B Core IgM Ab (NEGATIVE) Hepatitis C Antibody (NEGATIVE) 03/18/18 03/18/18 03/18/18 Range/Units 06:50 06:50 06:50 WBC (4.5-11.0) 10^3/ul RBC (3.5-6.1) 10^6/uL Hgb (12.0-16.0) g/dL Hct (36.0-48.0) % MCV (80.0-105.0) fl MCH (25.0-35.0) pg MCHC (31.0-37.0) g/dl RDW (11.5-14.5) % Plt Count (120.0-450.0) 10^3/uL Manual Plt Count (120-450) K/mm3 MPV (7.0-11.0) fl Gran % (50.0-68.0) % Lymph % (Auto) (22.0-35.0) % Lamar % (Auto) (1.0-6.0) % Eos % (Auto) (1.5-5.0) % Baso % (Auto) (0.0-3.0) % Gran # (1.4-6.5) Lymph # (Auto) (1.2-3.4) Lamar # (Auto) (0.1-0.6) Eos # (Auto) (0.0-0.7) Baso # (Auto) (0.0-2.0) K/mm3 Differential Comment Platelet Evaluation Haptoglobin (30.0-200.0) mg/dL PT (9.4-12.5) SECONDS INR APTT (25.1-36.5) Seconds Sodium (132-148) mmol/L Potassium (3.6-5.0) mmol/L Chloride (98-107) mmol/L Carbon Dioxide (21-33) mmol/L Anion Gap (10-20) BUN (7-21) mg/dL Creatinine (0.7-1.2) mg/dl Est GFR ( Amer) Est GFR (Non-Af Amer) POC Glucose (mg/dL) (65-110) mg/dL Random Glucose (70-110) mg/dL Hemoglobin A1c 7.7 H (4.2-6.5) % Fructosamine (190-270) umol/L Calcium (8.4-10.5) mg/dL Phosphorus (2.5-4.5) mg/dL Magnesium (1.7-2.2) mg/dL Total Bilirubin (0.2-1.3) mg/dL Direct Bilirubin (0.0-0.4) mg/dL AST (14-36) U/L ALT (7-56) U/L Alkaline Phosphatase (38-126) U/L Ammonia (9-33) umol/L Lactate Dehydrogenase (333-699) U/L Total Protein (5.8-8.3) g/dL Albumin (3.0-4.8) g/dL Globulin gm/dL Albumin/Globulin Ratio (1.1-1.8) 25-OH Vitamin D Total 29.1 L (30.0-100.0) NG/ML Hepatitis A IgM Ab Negative (NEGATIVE) Hep Bs Antigen Negative (NEGATIVE) Hep B Core IgM Ab Negative (NEGATIVE) Hepatitis C Antibody Negative (NEGATIVE) 03/18/18 Range/Units 06:30 WBC (4.5-11.0) 10^3/ul RBC (3.5-6.1) 10^6/uL Hgb (12.0-16.0) g/dL Hct (36.0-48.0) % MCV (80.0-105.0) fl MCH (25.0-35.0) pg MCHC (31.0-37.0) g/dl RDW (11.5-14.5) % Plt Count (120.0-450.0) 10^3/uL Manual Plt Count (120-450) K/mm3 MPV (7.0-11.0) fl Gran % (50.0-68.0) % Lymph % (Auto) (22.0-35.0) % Lamar % (Auto) (1.0-6.0) % Eos % (Auto) (1.5-5.0) % Baso % (Auto) (0.0-3.0) % Gran # (1.4-6.5) Lymph # (Auto) (1.2-3.4) Lamar # (Auto) (0.1-0.6) Eos # (Auto) (0.0-0.7) Baso # (Auto) (0.0-2.0) K/mm3 Differential Comment See pathology report Platelet Evaluation Haptoglobin (30.0-200.0) mg/dL PT (9.4-12.5) SECONDS INR APTT (25.1-36.5) Seconds Sodium (132-148) mmol/L Potassium (3.6-5.0) mmol/L Chloride (98-107) mmol/L Carbon Dioxide (21-33) mmol/L Anion Gap (10-20) BUN (7-21) mg/dL Creatinine (0.7-1.2) mg/dl Est GFR ( Amer) Est GFR (Non-Af Amer) POC Glucose (mg/dL) (65-110) mg/dL Random Glucose (70-110) mg/dL Hemoglobin A1c (4.2-6.5) % Fructosamine (190-270) umol/L Calcium (8.4-10.5) mg/dL Phosphorus (2.5-4.5) mg/dL Magnesium (1.7-2.2) mg/dL Total Bilirubin (0.2-1.3) mg/dL Direct Bilirubin (0.0-0.4) mg/dL AST (14-36) U/L ALT (7-56) U/L Alkaline Phosphatase (38-126) U/L Ammonia (9-33) umol/L Lactate Dehydrogenase (333-699) U/L Total Protein (5.8-8.3) g/dL Albumin (3.0-4.8) g/dL Globulin gm/dL Albumin/Globulin Ratio (1.1-1.8) 25-OH Vitamin D Total (30.0-100.0) NG/ML Hepatitis A IgM Ab (NEGATIVE) Hep Bs Antigen (NEGATIVE) Hep B Core IgM Ab (NEGATIVE) Hepatitis C Antibody (NEGATIVE) Laboratory Results - last 24 hr 03/18/18 03/18/18 03/18/18 06:30 06:50 06:50 WBC RBC Hgb Hct MCV MCH MCHC RDW Plt Count Manual Plt Count MPV Gran % Lymph % (Auto) Lamar % (Auto) Eos % (Auto) Baso % (Auto) Gran # Lymph # (Auto) Lamar # (Auto) Eos # (Auto) Baso # (Auto) Differential Comment See pathology report Platelet Evaluation Haptoglobin PT INR APTT Sodium Potassium Chloride Carbon Dioxide Anion Gap BUN Creatinine Est GFR ( Amer) Est GFR (Non-Af Amer) POC Glucose (mg/dL) Random Glucose Hemoglobin A1c 7.7 H Fructosamine Calcium Phosphorus Magnesium Total Bilirubin Direct Bilirubin AST ALT Alkaline Phosphatase Ammonia Lactate Dehydrogenase Total Protein Albumin Globulin Albumin/Globulin Ratio 25-OH Vitamin D Total Hepatitis A IgM Ab Negative Hep Bs Antigen Negative Hep B Core IgM Ab Negative Hepatitis C Antibody Negative 03/18/18 03/18/18 03/18/18 06:50 06:50 06:50 WBC RBC Hgb Hct MCV MCH MCHC RDW Plt Count Manual Plt Count MPV Gran % Lymph % (Auto) Lamar % (Auto) Eos % (Auto) Baso % (Auto) Gran # Lymph # (Auto) Lamar # (Auto) Eos # (Auto) Baso # (Auto) Differential Comment Platelet Evaluation Haptoglobin < 20.0 L PT INR APTT Sodium Potassium Chloride Carbon Dioxide Anion Gap BUN Creatinine Est GFR ( Amer) Est GFR (Non-Af Amer) POC Glucose (mg/dL) Random Glucose Hemoglobin A1c Fructosamine 329 H Calcium Phosphorus Magnesium Total Bilirubin Direct Bilirubin AST ALT Alkaline Phosphatase Ammonia Lactate Dehydrogenase Total Protein Albumin Globulin Albumin/Globulin Ratio 25-OH Vitamin D Total 29.1 L Hepatitis A IgM Ab Hep Bs Antigen Hep B Core IgM Ab Hepatitis C Antibody 03/18/18 03/18/18 03/18/18 06:50 11:20 11:32 WBC RBC Hgb Hct MCV MCH MCHC RDW Plt Count Manual Plt Count MPV Gran % Lymph % (Auto) Lamar % (Auto) Eos % (Auto) Baso % (Auto) Gran # Lymph # (Auto) Lamar # (Auto) Eos # (Auto) Baso # (Auto) Differential Comment Platelet Evaluation Haptoglobin PT INR APTT Sodium Potassium Chloride Carbon Dioxide Anion Gap BUN Creatinine Est GFR ( Amer) Est GFR (Non-Af Amer) POC Glucose (mg/dL) 210 H 279 H Random Glucose Hemoglobin A1c Fructosamine Calcium Phosphorus Magnesium Total Bilirubin Direct Bilirubin AST ALT Alkaline Phosphatase Ammonia Lactate Dehydrogenase 530 Total Protein Albumin Globulin Albumin/Globulin Ratio 25-OH Vitamin D Total Hepatitis A IgM Ab Hep Bs Antigen Hep B Core IgM Ab Hepatitis C Antibody 03/18/18 03/18/18 03/18/18 17:16 19:45 22:23 WBC 3.8 L D RBC 3.13 L Hgb 10.3 L D Hct 29.4 L MCV 93.9 MCH 32.9 MCHC 35.0 RDW 14.9 H Plt Count 65 L Manual Plt Count MPV 10.3 Gran % 61.5 Lymph % (Auto) 29.9 Lamar % (Auto) 5.5 Eos % (Auto) 3.1 Baso % (Auto) 0.0 Gran # 2.34 Lymph # (Auto) 1.1 L Lamar # (Auto) 0.2 Eos # (Auto) 0.1 Baso # (Auto) 0.00 Differential Comment Platelet Evaluation Haptoglobin PT INR APTT Sodium Potassium Chloride Carbon Dioxide Anion Gap BUN Creatinine Est GFR ( Amer) Est GFR (Non-Af Amer) POC Glucose (mg/dL) 224 H 176 H Random Glucose Hemoglobin A1c Fructosamine Calcium Phosphorus Magnesium Total Bilirubin Direct Bilirubin AST ALT Alkaline Phosphatase Ammonia Lactate Dehydrogenase Total Protein Albumin Globulin Albumin/Globulin Ratio 25-OH Vitamin D Total Hepatitis A IgM Ab Hep Bs Antigen Hep B Core IgM Ab Hepatitis C Antibody 03/19/18 03/19/18 03/19/18 05:42 07:40 07:40 WBC Cancelled RBC Cancelled Hgb Cancelled Hct Cancelled MCV Cancelled MCH Cancelled MCHC Cancelled RDW Cancelled Plt Count Cancelled Manual Plt Count MPV Cancelled Gran % Cancelled Lymph % (Auto) Cancelled Lamar % (Auto) Cancelled Eos % (Auto) Cancelled Baso % (Auto) Cancelled Gran # Cancelled Lymph # (Auto) Cancelled Lamar # (Auto) Cancelled Eos # (Auto) Cancelled Baso # (Auto) Cancelled Differential Comment Platelet Evaluation Cancelled Haptoglobin PT INR APTT Sodium 143 Potassium 3.6 Chloride 112 H Carbon Dioxide 21 Anion Gap 13 BUN 25 H Creatinine 0.6 L Est GFR ( Amer) > 60 Est GFR (Non-Af Amer) > 60 POC Glucose (mg/dL) 183 H Random Glucose 178 H Hemoglobin A1c Fructosamine Calcium 7.8 L Phosphorus 3.3 Magnesium 1.9 Total Bilirubin 2.8 H Direct Bilirubin 0.8 H AST 114 H D ALT 66 H Alkaline Phosphatase 70 Ammonia Lactate Dehydrogenase Total Protein 5.6 L Albumin 2.6 L Globulin 3.0 Albumin/Globulin Ratio 0.9 L 25-OH Vitamin D Total Hepatitis A IgM Ab Hep Bs Antigen Hep B Core IgM Ab Hepatitis C Antibody 03/19/18 03/19/18 03/19/18 07:40 07:40 08:10 WBC 2.7 L* D RBC 2.88 L Hgb 9.7 L Hct 26.9 L MCV 93.4 MCH 33.7 MCHC 36.1 RDW 15.1 H Plt Count 50 L Manual Plt Count MPV 9.9 Gran % 55.1 Lymph % (Auto) 35.2 H Lamar % (Auto) 6.7 H Eos % (Auto) 3.0 Baso % (Auto) 0.0 Gran # 1.49 Lymph # (Auto) 1.0 L Lamar # (Auto) 0.2 Eos # (Auto) 0.1 Baso # (Auto) 0.00 Differential Comment Platelet Evaluation Haptoglobin PT 14.0 H INR 1.21 APTT 33.7 Sodium Potassium Chloride Carbon Dioxide Anion Gap BUN Creatinine Est GFR ( Amer) Est GFR (Non-Af Amer) POC Glucose (mg/dL) Random Glucose Hemoglobin A1c Fructosamine Calcium Phosphorus Magnesium Total Bilirubin Direct Bilirubin AST ALT Alkaline Phosphatase Ammonia 39 H Lactate Dehydrogenase Total Protein Albumin Globulin Albumin/Globulin Ratio 25-OH Vitamin D Total Hepatitis A IgM Ab Hep Bs Antigen Hep B Core IgM Ab Hepatitis C Antibody 03/19/18 08:30 WBC RBC Hgb Hct MCV MCH MCHC RDW Plt Count Manual Plt Count 88 L MPV Gran % Lymph % (Auto) Lamar % (Auto) Eos % (Auto) Baso % (Auto) Gran # Lymph # (Auto) Lamar # (Auto) Eos # (Auto) Baso # (Auto) Differential Comment Platelet Evaluation Haptoglobin PT INR APTT Sodium Potassium Chloride Carbon Dioxide Anion Gap BUN Creatinine Est GFR ( Amer) Est GFR (Non-Af Amer) POC Glucose (mg/dL) Random Glucose Hemoglobin A1c Fructosamine Calcium Phosphorus Magnesium Total Bilirubin Direct Bilirubin AST ALT Alkaline Phosphatase Ammonia Lactate Dehydrogenase Total Protein Albumin Globulin Albumin/Globulin Ratio 25-OH Vitamin D Total Hepatitis A IgM Ab Hep Bs Antigen Hep B Core IgM Ab Hepatitis C Antibody Fingerstick Blood Sugar Results: 183 Critical Care Progress Note - Nutrition Nutrition: Nutrition Category Date Time Status Liquid Diet [DIET] Diets 03/19/18 Breakfast Ordered Assessment/Plan - Assessment and Plan (Free Text) Assessment: This is a 62 year old female with PMH of HT, DM, fatty liver and cirrhosis presenting to ICU s/p upper endoscopic injection of duodenal ulcer. Will monitor for 24 hours Plan: Neuro: -maintain normothermia -AAO x3, moving extremities spontaneously past midline Cardio: -maintain MAP>65 -BP/HR reviewed and trended, stable overnight -Troponin is <0.01 signifying unlikely cardiac ischemic etiology -Will hold BP medications at this time Lungs: -SaO2 >90% -supplementary O2 PRN -CXR showed no active disease GI: -mild transaminitis present. AST/ALT 114/66 today. -Liquid diet -octreotide drip stopped yesterday -protonix drip -CT abd/pelvis shows heterogenous liver -endoscopy shows bleeding duodenal ulcer -Abd US pending, GI bleeding scan pending -hepatitis panel is negative -GI consult, Dr Lobo Renal: -maintain euvolemia -avoid nephrotoxic agents, hypochloremia -replace electrolytes as needed -LR at 100 ml/hr Heme: -Hg today is 9.7 today from 10.3, will monitor -2 units PRBC administered yesterday -hold anticoagulants -SCD for ppx Endo: -maintain euglycemia -insulin lispro q6 ID: -No concern for infectious etiology at this time -blood culture no growth after 24 hours <Bela Gurrola - Last Filed: 03/19/18 16:14> CCU Objective - Vital Signs / Intake & Output Vital Signs (Last 4 hours): Vital Signs Pulse Resp BP Pulse Ox 03/19/18 14:00 78 19 153/72 H 100 03/19/18 13:50 69 15 98 03/19/18 13:40 77 15 98 03/19/18 13:30 72 17 99 03/19/18 13:20 74 22 99 03/19/18 13:10 69 18 99 03/19/18 13:01 72 22 160/70 H 100 03/19/18 13:00 75 15 99 03/19/18 12:50 70 18 99 03/19/18 12:40 86 20 100 03/19/18 12:30 70 17 99 03/19/18 12:20 78 19 98 Intake and Output (Last 8hrs): Intake & Output 03/19/18 03/19/18 03/19/18 06:59 14:59 22:59 Intake Total 1500 Output Total 350 Balance 1150 Intake: IV 1500 LR 1200 protonix 240 sonam 60 Output: Urine 350 Urine, Voided 350 Other: # Bowel Movements 3 - Medications Active Medications: Active Medications Generic Name Dose Route Start Last Admin Trade Name Freq PRN Reason Stop Dose Admin Acetaminophen 650 mg 03/17/18 23:19 Tylenol 650 Mg Supp RC Q6H PRN TEMP>=99.5F Ergocalciferol 1 cap 03/19/18 08:45 03/19/18 09:25 Drisdol 50,000 Intl Units Cap PO 1 cap Q7D NEIL Administration Pantoprazole Sodium 40 mg in 100 mls @ 20 mls/hr 03/17/18 16:00 03/19/18 15: 29 Protonix 40mg Ivpb IVPB 20 mls/hr .Q5H NEIL Administration Lactated Ringer's 1,000 mls @ 100 mls/hr 03/17/18 23:30 03/19/18 05:54 Lactated Ringer's IV 100 mls/hr .Q10H NEIL Administration Insulin Human Lispro 0 units 03/17/18 23:30 03/19/18 12:16 Humalog Low SC 3 units Q6H NEIL Administration Protocol Lactulose 30 gm 03/18/18 11:00 03/19/18 09:25 Enulose PO 30 gm TID NEIL Administration Metoprolol Succinate 100 mg 03/20/18 10:00 Toprol Xl PO DAILY NEIL Ondansetron HCl 4 mg 03/17/18 23:19 Zofran Inj IVP Q4H PRN Nausea/Vomiting Sucralfate 1 gm 03/19/18 11:30 03/19/18 12:16 Carafate Oral Susp PO 1 gm ACHS NEIL Administration - Patient Studies Lab Studies: Microbiology Studies 03/17/18 18:54 MRSA Culture (Admit) - Final Naris MRSA NOT DETECTED Lab Studies 03/19/18 03/19/18 03/19/18 Range/Units 11:38 08:30 08:10 WBC 2.7 L* D (4.5-11.0) 10^3/ul RBC 2.88 L (3.5-6.1) 10^6/uL Hgb 9.7 L (12.0-16.0) g/dL Hct 26.9 L (36.0-48.0) % MCV 93.4 (80.0-105.0) fl MCH 33.7 (25.0-35.0) pg MCHC 36.1 (31.0-37.0) g/dl RDW 15.1 H (11.5-14.5) % Plt Count 50 L (120.0-450.0) 10^3/uL Manual Plt Count 88 L (120-450) K/mm3 MPV 9.9 (7.0-11.0) fl Gran % 55.1 (50.0-68.0) % Lymph % (Auto) 35.2 H (22.0-35.0) % Lamar % (Auto) 6.7 H (1.0-6.0) % Eos % (Auto) 3.0 (1.5-5.0) % Baso % (Auto) 0.0 (0.0-3.0) % Gran # 1.49 (1.4-6.5) Lymph # (Auto) 1.0 L (1.2-3.4) Lamar # (Auto) 0.2 (0.1-0.6) Eos # (Auto) 0.1 (0.0-0.7) Baso # (Auto) 0.00 (0.0-2.0) K/mm3 Platelet Evaluation Haptoglobin (30.0-200.0) mg/dL PT (9.4-12.5) SECONDS INR APTT (25.1-36.5) Seconds Sodium (132-148) mmol/L Potassium (3.6-5.0) mmol/L Chloride (98-107) mmol/L Carbon Dioxide (21-33) mmol/L Anion Gap (10-20) BUN (7-21) mg/dL Creatinine (0.7-1.2) mg/dl Est GFR ( Amer) Est GFR (Non-Af Amer) POC Glucose (mg/dL) 257 H (65-110) mg/dL Random Glucose (70-110) mg/dL Fructosamine (190-270) umol/L Calcium (8.4-10.5) mg/dL Phosphorus (2.5-4.5) mg/dL Magnesium (1.7-2.2) mg/dL Total Bilirubin (0.2-1.3) mg/dL Direct Bilirubin (0.0-0.4) mg/dL AST (14-36) U/L ALT (7-56) U/L Alkaline Phosphatase (38-126) U/L Ammonia (9-33) umol/L Total Protein (5.8-8.3) g/dL Albumin (3.0-4.8) g/dL Globulin gm/dL Albumin/Globulin Ratio (1.1-1.8) 03/19/18 03/19/18 03/19/18 Range/Units 07:40 07:40 07:40 WBC (4.5-11.0) 10^3/ul RBC (3.5-6.1) 10^6/uL Hgb (12.0-16.0) g/dL Hct (36.0-48.0) % MCV (80.0-105.0) fl MCH (25.0-35.0) pg MCHC (31.0-37.0) g/dl RDW (11.5-14.5) % Plt Count (120.0-450.0) 10^3/uL Manual Plt Count (120-450) K/mm3 MPV (7.0-11.0) fl Gran % (50.0-68.0) % Lymph % (Auto) (22.0-35.0) % Lamar % (Auto) (1.0-6.0) % Eos % (Auto) (1.5-5.0) % Baso % (Auto) (0.0-3.0) % Gran # (1.4-6.5) Lymph # (Auto) (1.2-3.4) Lamar # (Auto) (0.1-0.6) Eos # (Auto) (0.0-0.7) Baso # (Auto) (0.0-2.0) K/mm3 Platelet Evaluation Haptoglobin (30.0-200.0) mg/dL PT 14.0 H (9.4-12.5) SECONDS INR 1.21 APTT 33.7 (25.1-36.5) Seconds Sodium 143 (132-148) mmol/L Potassium 3.6 (3.6-5.0) mmol/L Chloride 112 H (98-107) mmol/L Carbon Dioxide 21 (21-33) mmol/L Anion Gap 13 (10-20) BUN 25 H (7-21) mg/dL Creatinine 0.6 L (0.7-1.2) mg/dl Est GFR ( Amer) > 60 Est GFR (Non-Af Amer) > 60 POC Glucose (mg/dL) (65-110) mg/dL Random Glucose 178 H (70-110) mg/dL Fructosamine (190-270) umol/L Calcium 7.8 L (8.4-10.5) mg/dL Phosphorus 3.3 (2.5-4.5) mg/dL Magnesium 1.9 (1.7-2.2) mg/dL Total Bilirubin 2.8 H (0.2-1.3) mg/dL Direct Bilirubin 0.8 H (0.0-0.4) mg/dL AST 114 H D (14-36) U/L ALT 66 H (7-56) U/L Alkaline Phosphatase 70 (38-126) U/L Ammonia 39 H (9-33) umol/L Total Protein 5.6 L (5.8-8.3) g/dL Albumin 2.6 L (3.0-4.8) g/dL Globulin 3.0 gm/dL Albumin/Globulin Ratio 0.9 L (1.1-1.8) 03/19/18 03/19/18 03/18/18 Range/Units 07:40 05:42 22:23 WBC Cancelled (4.5-11.0) 10^3/ul RBC Cancelled (3.5-6.1) 10^6/uL Hgb Cancelled (12.0-16.0) g/dL Hct Cancelled (36.0-48.0) % MCV Cancelled (80.0-105.0) fl MCH Cancelled (25.0-35.0) pg MCHC Cancelled (31.0-37.0) g/dl RDW Cancelled (11.5-14.5) % Plt Count Cancelled (120.0-450.0) 10^3/uL Manual Plt Count (120-450) K/mm3 MPV Cancelled (7.0-11.0) fl Gran % Cancelled (50.0-68.0) % Lymph % (Auto) Cancelled (22.0-35.0) % Lamar % (Auto) Cancelled (1.0-6.0) % Eos % (Auto) Cancelled (1.5-5.0) % Baso % (Auto) Cancelled (0.0-3.0) % Gran # Cancelled (1.4-6.5) Lymph # (Auto) Cancelled (1.2-3.4) Lamar # (Auto) Cancelled (0.1-0.6) Eos # (Auto) Cancelled (0.0-0.7) Baso # (Auto) Cancelled (0.0-2.0) K/mm3 Platelet Evaluation Cancelled Haptoglobin (30.0-200.0) mg/dL PT (9.4-12.5) SECONDS INR APTT (25.1-36.5) Seconds Sodium (132-148) mmol/L Potassium (3.6-5.0) mmol/L Chloride (98-107) mmol/L Carbon Dioxide (21-33) mmol/L Anion Gap (10-20) BUN (7-21) mg/dL Creatinine (0.7-1.2) mg/dl Est GFR ( Amer) Est GFR (Non-Af Amer) POC Glucose (mg/dL) 183 H 176 H (65-110) mg/dL Random Glucose (70-110) mg/dL Fructosamine (190-270) umol/L Calcium (8.4-10.5) mg/dL Phosphorus (2.5-4.5) mg/dL Magnesium (1.7-2.2) mg/dL Total Bilirubin (0.2-1.3) mg/dL Direct Bilirubin (0.0-0.4) mg/dL AST (14-36) U/L ALT (7-56) U/L Alkaline Phosphatase (38-126) U/L Ammonia (9-33) umol/L Total Protein (5.8-8.3) g/dL Albumin (3.0-4.8) g/dL Globulin gm/dL Albumin/Globulin Ratio (1.1-1.8) 03/18/18 03/18/18 03/18/18 Range/Units 19:45 17:16 06:50 WBC 3.8 L D (4.5-11.0) 10^3/ul RBC 3.13 L (3.5-6.1) 10^6/uL Hgb 10.3 L D (12.0-16.0) g/dL Hct 29.4 L (36.0-48.0) % MCV 93.9 (80.0-105.0) fl MCH 32.9 (25.0-35.0) pg MCHC 35.0 (31.0-37.0) g/dl RDW 14.9 H (11.5-14.5) % Plt Count 65 L (120.0-450.0) 10^3/uL Manual Plt Count (120-450) K/mm3 MPV 10.3 (7.0-11.0) fl Gran % 61.5 (50.0-68.0) % Lymph % (Auto) 29.9 (22.0-35.0) % Lamar % (Auto) 5.5 (1.0-6.0) % Eos % (Auto) 3.1 (1.5-5.0) % Baso % (Auto) 0.0 (0.0-3.0) % Gran # 2.34 (1.4-6.5) Lymph # (Auto) 1.1 L (1.2-3.4) Lamar # (Auto) 0.2 (0.1-0.6) Eos # (Auto) 0.1 (0.0-0.7) Baso # (Auto) 0.00 (0.0-2.0) K/mm3 Platelet Evaluation Haptoglobin < 20.0 L (30.0-200.0) mg/dL PT (9.4-12.5) SECONDS INR APTT (25.1-36.5) Seconds Sodium (132-148) mmol/L Potassium (3.6-5.0) mmol/L Chloride (98-107) mmol/L Carbon Dioxide (21-33) mmol/L Anion Gap (10-20) BUN (7-21) mg/dL Creatinine (0.7-1.2) mg/dl Est GFR ( Amer) Est GFR (Non-Af Amer) POC Glucose (mg/dL) 224 H (65-110) mg/dL Random Glucose (70-110) mg/dL Fructosamine (190-270) umol/L Calcium (8.4-10.5) mg/dL Phosphorus (2.5-4.5) mg/dL Magnesium (1.7-2.2) mg/dL Total Bilirubin (0.2-1.3) mg/dL Direct Bilirubin (0.0-0.4) mg/dL AST (14-36) U/L ALT (7-56) U/L Alkaline Phosphatase (38-126) U/L Ammonia (9-33) umol/L Total Protein (5.8-8.3) g/dL Albumin (3.0-4.8) g/dL Globulin gm/dL Albumin/Globulin Ratio (1.1-1.8) 03/18/18 Range/Units 06:50 WBC (4.5-11.0) 10^3/ul RBC (3.5-6.1) 10^6/uL Hgb (12.0-16.0) g/dL Hct (36.0-48.0) % MCV (80.0-105.0) fl MCH (25.0-35.0) pg MCHC (31.0-37.0) g/dl RDW (11.5-14.5) % Plt Count (120.0-450.0) 10^3/uL Manual Plt Count (120-450) K/mm3 MPV (7.0-11.0) fl Gran % (50.0-68.0) % Lymph % (Auto) (22.0-35.0) % Lamar % (Auto) (1.0-6.0) % Eos % (Auto) (1.5-5.0) % Baso % (Auto) (0.0-3.0) % Gran # (1.4-6.5) Lymph # (Auto) (1.2-3.4) Lamar # (Auto) (0.1-0.6) Eos # (Auto) (0.0-0.7) Baso # (Auto) (0.0-2.0) K/mm3 Platelet Evaluation Haptoglobin (30.0-200.0) mg/dL PT (9.4-12.5) SECONDS INR APTT (25.1-36.5) Seconds Sodium (132-148) mmol/L Potassium (3.6-5.0) mmol/L Chloride (98-107) mmol/L Carbon Dioxide (21-33) mmol/L Anion Gap (10-20) BUN (7-21) mg/dL Creatinine (0.7-1.2) mg/dl Est GFR ( Amer) Est GFR (Non-Af Amer) POC Glucose (mg/dL) (65-110) mg/dL Random Glucose (70-110) mg/dL Fructosamine 329 H (190-270) umol/L Calcium (8.4-10.5) mg/dL Phosphorus (2.5-4.5) mg/dL Magnesium (1.7-2.2) mg/dL Total Bilirubin (0.2-1.3) mg/dL Direct Bilirubin (0.0-0.4) mg/dL AST (14-36) U/L ALT (7-56) U/L Alkaline Phosphatase (38-126) U/L Ammonia (9-33) umol/L Total Protein (5.8-8.3) g/dL Albumin (3.0-4.8) g/dL Globulin gm/dL Albumin/Globulin Ratio (1.1-1.8) Laboratory Results - last 24 hr 03/18/18 03/18/18 03/18/18 06:50 06:50 17:16 WBC RBC Hgb Hct MCV MCH MCHC RDW Plt Count Manual Plt Count MPV Gran % Lymph % (Auto) Lamar % (Auto) Eos % (Auto) Baso % (Auto) Gran # Lymph # (Auto) Lamar # (Auto) Eos # (Auto) Baso # (Auto) Platelet Evaluation Haptoglobin < 20.0 L PT INR APTT Sodium Potassium Chloride Carbon Dioxide Anion Gap BUN Creatinine Est GFR ( Amer) Est GFR (Non-Af Amer) POC Glucose (mg/dL) 224 H Random Glucose Fructosamine 329 H Calcium Phosphorus Magnesium Total Bilirubin Direct Bilirubin AST ALT Alkaline Phosphatase Ammonia Total Protein Albumin Globulin Albumin/Globulin Ratio 03/18/18 03/18/18 03/19/18 19:45 22:23 05:42 WBC 3.8 L D RBC 3.13 L Hgb 10.3 L D Hct 29.4 L MCV 93.9 MCH 32.9 MCHC 35.0 RDW 14.9 H Plt Count 65 L Manual Plt Count MPV 10.3 Gran % 61.5 Lymph % (Auto) 29.9 Lamar % (Auto) 5.5 Eos % (Auto) 3.1 Baso % (Auto) 0.0 Gran # 2.34 Lymph # (Auto) 1.1 L Lamar # (Auto) 0.2 Eos # (Auto) 0.1 Baso # (Auto) 0.00 Platelet Evaluation Haptoglobin PT INR APTT Sodium Potassium Chloride Carbon Dioxide Anion Gap BUN Creatinine Est GFR ( Amer) Est GFR (Non-Af Amer) POC Glucose (mg/dL) 176 H 183 H Random Glucose Fructosamine Calcium Phosphorus Magnesium Total Bilirubin Direct Bilirubin AST ALT Alkaline Phosphatase Ammonia Total Protein Albumin Globulin Albumin/Globulin Ratio 03/19/18 03/19/18 03/19/18 07:40 07:40 07:40 WBC Cancelled RBC Cancelled Hgb Cancelled Hct Cancelled MCV Cancelled MCH Cancelled MCHC Cancelled RDW Cancelled Plt Count Cancelled Manual Plt Count MPV Cancelled Gran % Cancelled Lymph % (Auto) Cancelled Lamar % (Auto) Cancelled Eos % (Auto) Cancelled Baso % (Auto) Cancelled Gran # Cancelled Lymph # (Auto) Cancelled Lamar # (Auto) Cancelled Eos # (Auto) Cancelled Baso # (Auto) Cancelled Platelet Evaluation Cancelled Haptoglobin PT INR APTT Sodium 143 Potassium 3.6 Chloride 112 H Carbon Dioxide 21 Anion Gap 13 BUN 25 H Creatinine 0.6 L Est GFR ( Amer) > 60 Est GFR (Non-Af Amer) > 60 POC Glucose (mg/dL) Random Glucose 178 H Fructosamine Calcium 7.8 L Phosphorus 3.3 Magnesium 1.9 Total Bilirubin 2.8 H Direct Bilirubin 0.8 H AST 114 H D ALT 66 H Alkaline Phosphatase 70 Ammonia 39 H Total Protein 5.6 L Albumin 2.6 L Globulin 3.0 Albumin/Globulin Ratio 0.9 L 03/19/18 03/19/18 03/19/18 07:40 08:10 08:30 WBC 2.7 L* D RBC 2.88 L Hgb 9.7 L Hct 26.9 L MCV 93.4 MCH 33.7 MCHC 36.1 RDW 15.1 H Plt Count 50 L Manual Plt Count 88 L MPV 9.9 Gran % 55.1 Lymph % (Auto) 35.2 H Lamar % (Auto) 6.7 H Eos % (Auto) 3.0 Baso % (Auto) 0.0 Gran # 1.49 Lymph # (Auto) 1.0 L Lamar # (Auto) 0.2 Eos # (Auto) 0.1 Baso # (Auto) 0.00 Platelet Evaluation Haptoglobin PT 14.0 H INR 1.21 APTT 33.7 Sodium Potassium Chloride Carbon Dioxide Anion Gap BUN Creatinine Est GFR ( Amer) Est GFR (Non-Af Amer) POC Glucose (mg/dL) Random Glucose Fructosamine Calcium Phosphorus Magnesium Total Bilirubin Direct Bilirubin AST ALT Alkaline Phosphatase Ammonia Total Protein Albumin Globulin Albumin/Globulin Ratio 03/19/18 11:38 WBC RBC Hgb Hct MCV MCH MCHC RDW Plt Count Manual Plt Count MPV Gran % Lymph % (Auto) Lamar % (Auto) Eos % (Auto) Baso % (Auto) Gran # Lymph # (Auto) Lamar # (Auto) Eos # (Auto) Baso # (Auto) Platelet Evaluation Haptoglobin PT INR APTT Sodium Potassium Chloride Carbon Dioxide Anion Gap BUN Creatinine Est GFR ( Amer) Est GFR (Non-Af Amer) POC Glucose (mg/dL) 257 H Random Glucose Fructosamine Calcium Phosphorus Magnesium Total Bilirubin Direct Bilirubin AST ALT Alkaline Phosphatase Ammonia Total Protein Albumin Globulin Albumin/Globulin Ratio Critical Care Progress Note - Nutrition Nutrition: Nutrition Category Date Time Status Liquid Diet [DIET] Diets 03/19/18 Breakfast Ordered Addendum Addendum: 03/19/18 16:13 ICU Attending Addendum: Patient seen and examined. Case reviewed on round with housestaff. Agree with resident note above with the following additions/exceptions: 62F with PMhx HTN, DM, fatty liver cirrhosis, presented with 2 episodes of hematemesis, and 6 episodes of bloody BMs at home. No further bloody BMs while in hospital. s/p EGD with non-bleeding ulcers seen and one oozing duodenal ulcer injected with EPI. Will cont to monitor hb and hymodynamics. Transfer out of ICU if stable in AM Rest of care as noted above. Bela Gurrola MD Cardiopulmonary Physical Therapist Critical care time : 35mins
[2018-03-19] MEDS: Sucralfate 1 gm/10 ml Oral Susp UD PO SCH ×3 (12:16→21:35)
--- NOTE | 2018-03-19 12:39 | PN ---
Copied To: Benny George MD Attending MD: Benny George MD DATE: 03/19/2018 SUBJECTIVE: The patient is seen out of bed to chair today in ICU, bed 2. The patient is alert, awake and responsive. The patient was not noticed to have any rectal bleeding or hematemesis. The patient denies any abdominal pain, nausea, vomiting, diarrhea or constipation. The patient denies bleeding. PHYSICAL EXAMINATION: VITAL SIGNS: T-max 98.7. Telemetry sinus rhythm, heart rate 70-74, blood pressure 131/56, 137/60, 140/52, 130/49, 129/56, respiration 16-18, O2 sat 97-98% on room air. HEENT: Head: Normocephalic, atraumatic. HEENT examination shows pinkish pale conjunctivae, slightly icteric sclerae. No oropharyngeal lesion. NECK: No neck rigidity. CHEST: Kyphosis. LUNGS: Shows no rales, crackles or wheezing. CARDIOVASCULAR: S1 and S2, regular rhythm. ABDOMEN: Soft. No guarding. No rigidity. No rebound tenderness. GENITALIA: Female. RECTAL: Deferred. EXTREMITIES: Shows no pitting edema, no calf tenderness, no Homans' signs. The patient does not have any GRIS stockings on despite my orders. MUSCULOSKELETAL: Shows a body mass index of 30. NEUROLOGICAL: The patient is alert, awake, responsive, follows command. Moves upper and lower extremity without assistance. Gait examination is not tested. VASCULAR: Palpable pulses. DIAGNOSTICS: On 03/19/2018: WBC 2.7, hemoglobin and hematocrit 9.7 and 27, platelets 50,000, manual platelets 88,000. PT 14, INR 1.21. Sodium 143, potassium 3.6, chloride 112, CO2 21, anion gap 13, BUN 25, creatinine 0.6, GFR greater than 60, glucose 178, hemoglobin A1c is 7.7, fructosamine is 329 which is elevated. Calcium 7.8, phosphorus 3.3, magnesium 1.9, total bili 2.8, direct bili 0.8, AST 114, ALT 66, ammonia is down to 39 from 112, total protein 5.6, albumin 2.6, vitamin D 25-hydroxy 29.1. Cholesterol is 146. Triglyceride is 140. LDL is 68. TSH is low at 0.27. Hepatitis A, B, C serologies are negative. MRSA none detected. Blood cultures are negative. The patient received 2 units of PRBC. CAT scan of the abdomen, abdominal ultrasound reviewed. EKG reviewed. The patient underwent endoscopy. IMPRESSION: 1. Status post gastrointestinal bleeding with hematemesis and hematochezia. 2. Acute blood loss anemia secondary to gastrointestinal bleeding. 3. Leukopenia, anemia. 4. Status post packed red blood cell transfusion. 5. History of hypertension, diabetes mellitus. 6. History of type 2 diabetes, history of hypertension, history of hepatic cirrhosis. 7. History of hepatic cirrhosis. 8. Hepatic cirrhosis with irregular hepatic contour. 9. Hypertensive cardiovascular disease. 10. Status post esophagogastroduodenoscopy. 11. Gastric antrum nonbleeding erosion 5 mm. 12. Nonbleeding cratered gastric ulcer. 13. Oozing duodenal ulcer in the duodenal bulb 20 mm in dimension. 14. Status post epinephrine injection to oozing cratered duodenal ulcer. 15. Nonbleeding erosive gastropathy. 16. Nonbleeding gastric ulcer. 17. Oozing duodenal ulcer status post epinephrine injection. 18. Status post esophagogastroduodenoscopy and sclerotherapy. 19. Thrombocytopenia. 20. Leukopenia. 21. Anemia. 22. Thrombocytopenia. 23. Anemia, thrombocytopenia with pancytopenia. 24. Mild coagulopathy. 25. Uncontrolled diabetes mellitus with hemoglobin A1c of 7.7. 26. Transaminitis and hyperbilirubinemia. 27. Mild hypoalbuminemia and mild protein malnutrition. 28. Hypovitaminosis D. 29. Decreased TSH, etiology unclear versus subclinical hyperthyroidism. 30. Uncontrolled non-insulin requiring type 2 diabetes mellitus with hemoglobin A1c of 7.7 and fructosamine of 329. 31. Hyperammonemia. 32. Status post packed red blood cell transfusion x2. 33. History of type 2 diabetes mellitus, hypertension. PLAN AT THIS TIME: The patient has been ordered for transfer out of the ICU. Serial labs, serial ammonia level, serial CBCs, serial PT/PTT and manual platelet ordered. CONSULTATION: Gastroenterology, referral diabetic education. CURRENT MEDICATIONS: Carafate 1 g before meals and at bedtime, Drisdol 50,000 weekly, lactulose 30 g three times a day, Humalog low-dose sliding scale coverage, Ringer's lactate 100 mL/hour, Protonix drip, Tylenol p.r.n., Zofran 4 IV every 4. The patient's official ultrasound of the abdomen report is pending. Thyroid ultrasound ordered. Incentive spirometer, oxygen ordered. The patient is currently on liquid diet which will be advanced as per the GI recommendation. The patient has been ordered out of bed, GRIS stockings, SCDs, occupational, physical therapy, stool occult blood ordered. At present, the patient's further management will be dependent upon the patient's clinical condition, hemodynamic status and as per the patient response to therapeutic intervention, as per the patient's diagnostic test results and as per recommendation by physician involved in the care of the patient. Dictated and electronically signed, not read. Benny George MD : 03/19/2018 10:45:01
--- NOTE | 2018-03-19 16:16 | US ---
Date of service: 03/19/2018 HISTORY: ?? THYROID NODULES TECHNIQUE: Sonographic evaluation of the thyroid gland. COMPARISON: None available. FINDINGS: RIGHT LOBE: Measures 4.7 x 1.5 x 2.5 cm. Mildly heterogeneous echotexture appreciated at the right lobe. No suspicious color Doppler blood flow pattern. Nodules: Heterogeneous but predominate hyper row a cold nodule seen with an epicenter at the midpole region measuring 2.3 x 1.1 x 1.4 cm. This nodule is hypovascular relative to the surrounding normal right lobe parenchyma. LEFT LOBE: Measures 4.6 x 1.4 x 2.2 cm. Heterogeneous echotexture is appreciated with normal color Doppler blood flow pattern. Nodules: Calcified nodule is seen at the midpole measuring 0.5 x 0.3 x 0.4 cm. Additional complex cyst or nodule seen the lower pole measuring 0.7 x 0.6 x 0.8 cm. ISTHMUS: Measures 0.24 cm. Normal echotexture and flow. Nodules: None OTHER FINDINGS: None . IMPRESSION: 1. Dominant heterogeneous nodule, midpole right lobe 2.3 cm greatest dimension. Consider tissue diagnosis if not already proven benign. 2. 0.5 cm calcified nodule midpole left lobe with a lower pole complex cyst or nodule seen 0.7 cm greatest dimension.
[2018-03-19 16:44] LABS: BASO # 0.01 K/mm3 (0.0-2.0); BASO % 0.3 % (0.0-3.0); EOS # 0.1 (0.0-0.7); EOS % 2.4 % (1.5-5.0); GRAN # 1.68 (1.4-6.5); GRAN % 50.7 % (50.0-68.0); HEMOGLOBIN 10.2 g/dL (12.0-16.0); LYMPH # 1.3 (1.2-3.4); LYMPH % 37.8 % (22.0-35.0); MEAN CELL VOLUME 95.4 fl (80.0-105.0); MEAN CORPUSCULAR HEMOGLOBIN 33.3 pg (25.0-35.0); MEAN CORPUSCULAR HGB CONC 34.9 g/dl (31.0-37.0); MEAN PLATELET VOLUME 10.8 fl (7.0-11.0); MONO # 0.3 (0.1-0.6); MONO % 8.8 % (1.0-6.0); RBC 3.06 10^6/uL (3.5-6.1); RED CELL DISTRIBUTION WIDTH 15.2 % (11.5-14.5); WHITE BLOOD COUNT 3.3 10^3/ul (4.5-11.0)
[2018-03-20] MEDS: Pantoprazole 40mg/100mL NS 40 MG/100 ML BAG IVPB SCH ×4 (01:34→22:17)
[2018-03-20] MEDS: Lactated Ringer's 1,000 ML IV SCH ×3 (01:46→22:16)
[2018-03-20 06:56] LABS: EOS # 0.1 (0.0-0.7); EOS % 3.8 % (1.5-5.0); GRAN # 1.33 (1.4-6.5); GRAN % 56.4 % (50.0-68.0); HEMOGLOBIN 9.4 g/dL (12.0-16.0); LYMPH # 0.8 (1.2-3.4); LYMPH % 34.3 % (22.0-35.0); MEAN CELL VOLUME 93.3 fl (80.0-105.0); MEAN CORPUSCULAR HEMOGLOBIN 33.2 pg (25.0-35.0); MEAN CORPUSCULAR HGB CONC 35.6 g/dl (31.0-37.0); MEAN PLATELET VOLUME 10.3 fl (7.0-11.0); MONO # 0.1 (0.1-0.6); MONO % 5.5 % (1.0-6.0); RBC 2.83 10^6/uL (3.5-6.1); RED CELL DISTRIBUTION WIDTH 14.6 % (11.5-14.5)
[2018-03-20 07:04] LABS: WHITE BLOOD COUNT 2.4 10^3/ul (4.5-11.0)
[2018-03-20 07:05] LABS: INR 1.24; PARTIAL THROMBOPLASTIN TIME 34.8 Seconds (25.1-36.5); PROTHROMBIN TIME 14.3 SECONDS (9.4-12.5)
[2018-03-20 07:19] LABS: ALB/GLOB RATIO 0.8 (1.1-1.8); ALBUMIN 2.5 g/dL (3.0-4.8); ALT/SGPT 69 U/L (7-56); AST/SGOT 107 U/L (14-36); BILIRUBIN,DIRECT 0.5 mg/dL (0.0-0.4); BLOOD UREA NITROGEN 12 mg/dL (7-21); CALCIUM 7.9 mg/dL (8.4-10.5); GFR NON-AFRICAN AMERICAN > 60
[2018-03-20] MEDS ORDERED: Magnesium 2 gm/50 ml NS 2 GM/50 ML BAG IVPB ONE (07:37)
[2018-03-20] MEDS: Sucralfate 1 gm/10 ml Oral Susp UD PO SCH ×4 (07:55→22:16)
[2018-03-20] MEDS: Potassium Chloride 20 mEq ER Tab PO SCH ×2 (07:56→09:53)
[2018-03-20] MEDS: Metoprolol Succinate 100 mg XL Tab PO SCH (09:51)
[2018-03-20 11:02] LABS: GLYCOMARK(R) 1.1 mcg/mL (7.5-28.4)
--- NOTE | 2018-03-20 11:17 | PN ---
Copied To: Endy Erickson MD Attending MD: Endy Erickson MD DATE: 03/20/2018 TIME: 08:15 a.m. I reviewed the patient's thyroid ultrasound. The gland is heterogeneous with multiple nodules. No hypervascular or significantly suspicious nodule is appreciated. Her thyroid function tests should be checked. A followup thyroid ultrasound is recommended in 6 to 12 months. The patient is currently admitted with a duodenal ulcer and large upper GI bleeding. Obviously, that needs to be addressed at this point in time. Endy Erickson MD MTDD
--- NOTE | 2018-03-20 11:52 | PN ---
Copied To: Dusty Lobo MD Attending MD: Dusty Lobo MD DATE: 03/20/2018 SUBJECTIVE: The patient is lying in bed in ICU. She denies having any further melena. She denies nausea, vomiting, hematemesis or rectal bleeding. OBJECTIVE: VITAL SIGNS: Reveal temperature of 97.8, blood pressure 138/61, heart rate 69. HEENT: Reveal sclerae to be white. Conjunctivae pale. NECK: Supple. CHEST: Lungs are clear. HEART: Exam reveals regular rate and rhythm. ABDOMEN: Soft,nontender. EXTREMITIES: Show no edema. DATA: Laboratory data reveal hemoglobin 9.4 which is stable, white blood cell count 2.4, platelet count 60,000, potassium 3.3, BUN 12 which is down and creatinine 0.5. 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 The bleeding appears to stop. She is also pancytopenic most likely secondary from her cirrhosis. RECOMMENDATIONS: 1. We will advance to full liquid diet today. 2. Follow serial hematocrits. 3. The patient to be transferred to Telemetry for further observation. Dusty Lobo MD
[2018-03-20] MEDS: Insulin Lispro (humaLOG) LOW Coverage SC SCH ×3 (12:10→23:01)
--- NOTE | 2018-03-20 15:17 | PN ---
Copied To: Benny George MD Attending MD: Benny George MD DATE: 03/20/2018 SUBJECTIVE: The patient is seen in ICU, bed 2. The patient is awaiting for a telemetry bed. Patient's spouse is at bedside. The patient lying in the bed. Patient is alert, awake and responsive. The patient denies any chest pain. Denies shortness of breath. Denies nausea. Denies vomiting. Denies rectal bleeding. Denies hematemesis. Denies melena. Denies hematochezia. PHYSICAL EXAMINATION: VITAL SIGNS: T-max 98.1. Telemetry shows sinus rhythm, heart rate 69, 74, blood pressure 138/61, respiration 16-18, O2 sat 99%. HEENT: Head: Normocephalic, atraumatic. HEENT examination shows pinkish pale conjunctivae. Icteric sclerae. No oropharyngeal lesion. NECK: No neck rigidity. CHEST: Symmetrical. LUNGS: Shows no rales, crackles or wheezing. CARDIOVASCULAR: S1 and S2, regular rhythm. No audible murmur, gallop or rub. ABDOMEN: Soft. Positive bowel sounds. No hepatosplenomegaly noted. No guarding. No rigidity. No rebound tenderness. GENITALIA: Female. RECTAL: Deferred. EXTREMITIES: Shows no pitting edema,, no calf tenderness, no Marko's sign. NEUROLOGIC: The patient is alert, awake and oriented x3. Cranial nerves II-XII intact. Gait examination is not tested. Motor strength is 5/5 in upper and lower extremity. Cranial nerves II-XII limited. VASCULAR: Palpable pulses. PSYCHIATRIC: Negative. DIAGNOSTICS: On 03/20/2018: CBC shows WBC is 2.4, hemoglobin and hematocrit 9.4 and 26.4, platelet 75,000. PT/PTT 14.3/34.8. Sodium 142, potassium 3.3, chloride 111, CO2 23, anion gap 12, BUN 12, creatinine 0.5, GFR greater than 60, glucose 147, calcium 7.9, phosphorus 3.3, magnesium 1.7, total bili 2.0, direct bili 0.5, AST 107, ALT 69, ammonia level is 41, total protein 5.6, albumin 2.5. Hepatitis A, B, C serologies and HIV is negative. Thyroid ultrasound results were noted. IMPRESSION: 1. Status post hematemesis and hematochezia and gastrointestinal bleeding. 2. Acute blood loss anemia secondary to gastrointestinal bleeding. 3. Oozing cratered duodenal ulcer in the duodenal bulb. 4. A 5 mm nonbleeding gastric antral erosion. 5. Nonbleeding cratered gastric ulcer 8 mm. 6. Hiatal hernia. 7. Single 5-mm nonbleeding gastric antral erosion. 8. Nonbleeding cratered gastric ulcer. 9. Oozing duodenal bulb cratered ulcer 20 mm in dimension status post epinephrine injection. 10. Nonbleeding erosive gastropathy. 11. Nonbleeding gastric ulcer. 12. Oozing duodenal ulcer status post epinephrine injection. 13. History of hypertension, type 2 diabetes mellitus. 14. Pancytopenia, anemia, leukopenia, thrombocytopenia. 15. Mild coagulopathy. 16. Hypokalemia. 17. Uncontrolled diabetes mellitus with hemoglobin A1c of 7.7 and elevated fructosamine. 18. Hypocalcemia. 19. Hyperbilirubinemia. 20. Transaminitis. 21. Cirrhosis. 22. Hyperammonemia. 23. Protein malnutrition. 24. Mild hypoalbuminemia. 25. Hypovitaminosis D. 26. Status post packed red blood cell transfusion x2. 27. Right thyroid lobe dominant heterogeneous nodule 2.3 cm dimension. 28. A 0.5 cm calcified left lobe mid pole thyroid nodule with the lower pole complex cyst or nodule. 29. Heterogenous, but predominantly hyper or cold nodule in the midpole of the right thyroid lobe which is hypovascular relative to the surrounding right thyroid lobe parenchyma. 30. Left thyroid lobe mid pole calcified nodule with complex cyst or nodule in the left thyroid lower pole. 31. Hypertensive cardiovascular disease. PLAN AT THIS TIME: The patient has been ordered serial labs. Current consultation Gastroenterology and Interventional Radiology ordered for a possible evaluation for thyroid nodule biopsy. The patient is referred to staff educator has been done. CURRENT MEDICATIONS: Carafate 1 g before meals and at bedtime, Drisdol 50,000 weekly, lactulose 30 g three times a day, Humalog low-dose sliding scale coverage, Ringer's lactate 100 mL/hour. The patient is given magnesium sulfate x1. Potassium supplementation ordered. Protonix drip is continued, Toprol-XL 100 mg daily, Tylenol 650 every 6, Zofran 4 IV every 6. Incentive spirometry ordered. The patient has been ordered out of bed, GRIS stockings, SCDs. The patient has been ordered transfer out of the ICU. At present, the patient is on liquid diet. We are awaiting further GI evaluation for advancing diet. The patient will be monitored closely with both objective and subjective data and clinical hemodynamic stability. If the patient is stable and tolerating diet and the patient's lab data and subjective condition is stable, the patient will be considered for discharge soon. All of the clinical details and diagnostic test results and recommendation discussed with the patient and the patient's spouse at length who was present at the bedside. Dictated and electronically signed, not read. Benny George MD
[2018-03-20 17:08] LABS: UREA BREATH TEST(UBIT) Detected (Not Detected)
[2018-03-20] MEDS ORDERED: CLARITHROMYCIN 250 MG/5 ML PO SCH (23:00)
[2018-03-20] MEDS ORDERED: Clarithromycin Susp 125 MG/5 ML PO SCH (23:08)
[2018-03-20] MEDS: Clarithromycin Susp 125 MG/5 ML PO SCH (23:40)
[2018-03-21 01:40] VITALS: RESP 18
[2018-03-21] MEDS: Pantoprazole 40mg/100mL NS 40 MG/100 ML BAG IVPB SCH ×3 (03:38→09:04)
[2018-03-21] MEDS: Insulin Lispro (humaLOG) LOW Coverage SC SCH ×3 (06:46→18:30)
[2018-03-21 07:06] LABS: EOS # 0.1 (0.0-0.7); EOS % 5.4 % (1.5-5.0); GRAN # 1.28 (1.4-6.5); GRAN % 53.1 % (50.0-68.0); HEMOGLOBIN 9.6 g/dL (12.0-16.0); LYMPH # 0.9 (1.2-3.4); LYMPH % 36.1 % (22.0-35.0); MEAN CELL VOLUME 93.4 fl (80.0-105.0); MEAN CORPUSCULAR HEMOGLOBIN 33.1 pg (25.0-35.0); MEAN CORPUSCULAR HGB CONC 35.4 g/dl (31.0-37.0); MEAN PLATELET VOLUME 10.1 fl (7.0-11.0); MONO # 0.1 (0.1-0.6); MONO % 5.4 % (1.0-6.0); RBC 2.9 10^6/uL (3.5-6.1); RED CELL DISTRIBUTION WIDTH 14.5 % (11.5-14.5)
[2018-03-21 07:15] LABS: INR 1.31; PARTIAL THROMBOPLASTIN TIME 35.1 Seconds (25.1-36.5); PROTHROMBIN TIME 15.1 SECONDS (9.4-12.5)
[2018-03-21 07:24] LABS: WHITE BLOOD COUNT 2.4 10^3/ul (4.5-11.0)
[2018-03-21 07:51] LABS: ALB/GLOB RATIO 0.8 (1.1-1.8); ALBUMIN 2.6 g/dL (3.0-4.8); ALT/SGPT 65 U/L (7-56); AST/SGOT 92 U/L (14-36); BILIRUBIN,DIRECT 0.4 mg/dL (0.0-0.4); BLOOD UREA NITROGEN 7 mg/dL (7-21); GFR NON-AFRICAN AMERICAN > 60
[2018-03-21] MEDS: Sucralfate 1 gm/10 ml Oral Susp UD PO SCH ×3 (08:45→17:35)
[2018-03-21] MEDS: Metoprolol Succinate 100 mg XL Tab PO SCH (09:03)
[2018-03-21] MEDS: Clarithromycin Susp 125 MG/5 ML PO SCH (10:40)
[2018-03-21] MEDS: Potassium Chloride 20 mEq ER Tab PO SCH ×2 (10:48→11:41)
--- NOTE | 2018-03-21 11:10 | PN ---
Copied To: Dusty Lobo MD Attending MD: Dusty Lobo MD DATE: 03/21/2018 SUBJECTIVE: The patient is lying in bed. She is tolerating solid food. She has not had any further melena or rectal bleeding. PHYSICAL EXAMINATION: VITAL SIGNS: Reveal temperature of 97.9, blood pressure 133/64, heart rate 75. HEENT: Reveal sclerae to be white. Conjunctivae pink. NECK: Supple. CHEST: Reveal lungs to be clear. HEART: Reveals regular rate and rhythm. ABDOMEN: Soft, nontender. No mass. EXTREMITIES: Showed no edema. LABORATORY DATA: Reveal white blood cell count 2.4, hemoglobin 9.6, platelet count 66,000. Chemistries reveal potassium of 3.5, total bilirubin 1.9, AST 92, ALT 65, alkaline phosphatase of 75, albumin of 2.6. Serum ammonia 29. 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 The patient has not had any further bleeding in 48 hours. The counts have remained stable. RECOMMENDATIONS: The patient is stable from GI for discharge. She is to continue Protonix 40 mg twice a day. I have asked the patient to follow up with me in the office. Dusty Lobo MD
[2018-03-21] MEDS ORDERED: Pantoprazole 40 mg EC Tab PO SCH (16:00)
[2018-03-21 17:57] VITALS: BP 119/72; TEMP 98.8; O2SAT 99
[2018-03-21 19:07] VITALS: PULSE 63
[2018-03-21] MEDS ORDERED: Pneumococcal 23-Valent Vaccine IM ONE (19:25)
[2018-03-22] MEDS ORDERED: Potassium Chloride 20 mEq ER Tab PO SCH (07:00)
--- NOTE | 2018-03-22 17:48 | DS ---
Copied To: Benny George MD Attending MD: Benny George MD FINAL PROGRESS NOTE AND DISCHARGE SUMMARY HISTORY OF PRESENT ILLNESS: The patient is seen in room 270, bed 2. The patient is out of bed to chair, ambulating. The patient is alert, awake, oriented x3. Denies any hematemesis. Denies any melena. Denies any hematochezia. Denies any abdominal pain. Denies any diarrhea. Denies any nausea or vomiting. PHYSICAL EXAMINATION: VITAL SIGNS: T-max 98; telemetry shows sinus rhythm, heart rate 73, 79, 75; blood pressure 119/72, 133/64, 138/66; respirations 18, O2 sat 99%. HEENT: Head examination normocephalic, atraumatic. HEENT examination shows pinkish pale conjunctivae, slightly icteric sclerae. No oropharyngeal lesion. No neck rigidity. CHEST: Kyphosis. LUNGS: Shows no rales, crackles or wheezing. CARDIOVASCULAR: S1, S2. Regular rhythm. ABDOMEN: Soft. No epigastric tenderness. No right, left upper and lower quadrant tenderness. No guarding. No rigidity. No rebound tenderness. No palpable hepatosplenomegaly. GENITALIA: Female. RECTAL: Deferred. EXTREMITY: Shows no pitting edema, no calf tenderness, no Homans' sign. NEUROLOGICAL: The patient is alert, awake, oriented x3. Cranial nerves II through XII grossly intact. Gait examination is independent. MUSCULOSKELETAL: Shows a body mass index of 31. PSYCHIATRIC: Negative. DIAGNOSTICS: On 03/21/2018, WBC 2.4, hemoglobin and hematocrit 9.6 and 27.1, platelet 96,000. PT/PTT 15.1, 35.1. Sodium 142; potassium 3.5, which was supplemented; chloride 110; CO2 of 26; anion gap 10; BUN 7; creatinine 0.5; GFR greater than 60. Glucose 83, 115, 109, 128, . Calcium 8, phosphorus 3.8, magnesium 1.8, total bili 1.9, AST 92, ALT 65, ammonia level down to 29, total protein 5.7, albumin 2.6. Stool occult blood negative. H. pylori urea breath test detected. Hepatitis A, B, C and HIV negative. Microbiology: MRSA none detected. Blood cultures negative. Blood bank: The patient received 2 units of PRBC. FINAL IMPRESSION, PLAN AND DISCHARGE DIAGNOSES: 1. Gastrointestinal bleed with acute blood loss anemia. 2. 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 3. Upper gastrointestinal bleeding secondary to large duodenal ulcer. 4. Blood loss anemia. 5. Helicobacter pylori gastritis with Helicobacter pylori urea breath test positive. 6. History of hypertension. 7. History of type 2 diabetes mellitus. 8. Pancytopenia with leukopenia, anemia, thrombocytopenia. 9. Status post packed red blood cell transfusion x2. 10. Mild coagulopathy. 11. Hypokalemia. 12. Uncontrolled type 2 diabetes mellitus with hemoglobin A1c of 7.7. 13. Hyperbilirubinemia. 14. Transaminitis. 15. Uncontrolled diabetes mellitus with hemoglobin A1c of 7.7 and fructosamine of 329. 16. Hyperammonemia. 17. Hypovitaminosis D. 18. Thyroid nodule. 19. Status post packed red blood cell transfusion. 20. Right thyroid lobe heterogeneous predominantly nodule seen in the epicenter in the midpole region and hypovascular related to the surrounding normal right lobe parenchyma. 21. Left thyroid lobe midpole calcified nodule with complex cyst or nodule in the lower pole of the left thyroid lobe. 22. Right thyroid lobe midpole dominant heterogeneous nodule. 23. Hepatomegaly. 24. Pancytopenia, anemia, thrombocytopenia. 25. Hypertensive cardiovascular disease. 26. Multiple thyroid nodules with heterogeneous thyroid gland. 27. Oozing cratered duodenal ulcer 20 mm in dimension, status post epinephrine injection. 28. Gastric pylorus nonbleeding cratered gastric ulcer, 8 mm in dimension. 29. Gastric antral single 5-mm nonbleeding erosion. 30. Small hiatal hernia. 31. Nonbleeding erosive gastropathy. 32. Nonbleeding gastric ulcer. 33. Status post packed red blood cell transfusion x2. The patient was seen by Gastroenterology and Endy Erickson. Their recommendations noted. Gastroenterology cleared the patient for discharge with outpatient followup. Dr. Erickson's evaluation was noted, recommends to repeat the thyroid ultrasound in 6 months to a year. DISCHARGE MEDICATIONS: Amoxicillin 1000 mg twice a day for 14 days. The patient is to hold the aspirin for at least 7-10 days. Biaxin 500 mg twice a day for 14 days, Drisdol 50,000 units weekly, lactulose 30 g twice a day, Zestril 40 mg daily, Toprol-XL 100 mg daily, Protonix 40 mg twice a day, Januvia 100 mg daily, Carafate 1 g four times a day. Next, the patient is to be discharged home with discharge followup with Dr. George within 1 week and discharge followup with Dr. Lobo in 2 weeks. The patient's discharge medications as per updated ambulatory orders and new script. The patient was advised to hold aspirin for another 7-10 days. During the hospitalization, the patient and the patient's spouse were updated and explained about the patient's condition, diagnoses, test results, recommendations by all physicians involved in the care of the patient in layman's language. All questions concerned answered. The patient was advised limitation and restriction of diet, followup etc. Time spent in the discharge process, 45 minutes. Dictated and electronically signed, not read. Benny George MD
== END 2018-03-21 20:45 | disposition home or self-care (01) | DRG 378 ==
LOC: ED 14:46 → ERH 17:31 → ICU 19:07 → 2RSO 03-20 22:03
PROVIDERS: ADMIT Internal Medicine; ATTEND Internal Medicine
PROC: 3E0G8GC Introduction of Other Therapeutic Substance into Upper GI, Via Natural or Artificial Opening Endoscopic (ICD-10-PCS; 2018-03-18)
PROC: 0DJ08ZZ Inspection of Upper Intestinal Tract, Via Natural or Artificial Opening Endoscopic (ICD-10-PCS; 2018-03-18)
PROC: 30233N1 Transfusion of Nonautologous Red Blood Cells into Peripheral Vein, Percutaneous Approach (ICD-10-PCS; principal; 2018-03-18 13:00)
DX: K26.4 Chronic or unspecified duodenal ulcer with hemorrhage (principal); D62 Acute posthemorrhagic anemia; D61.818 Other pancytopenia; D68.9 Coagulation defect, unspecified; K75.81 Nonalcoholic steatohepatitis (NASH); K74.69 Other cirrhosis of liver; B96.81 Helicobacter pylori [H. pylori] as the cause of diseases classified elsewhere; K29.70 Gastritis, unspecified, without bleeding; E55.9 Vitamin D deficiency, unspecified; I11.9 Hypertensive heart disease without heart failure; E11.65 Type 2 diabetes mellitus with hyperglycemia; K25.9 Gastric ulcer, unspecified as acute or chronic, without hemorrhage or perforation; K44.9 Diaphragmatic hernia without obstruction or gangrene; K31.9 Disease of stomach and duodenum, unspecified; E04.2 Nontoxic multinodular goiter; E87.6 Hypokalemia; E83.51 Hypocalcemia